=== PATIENT | male | born 1975 | race Caucasian/White ===

== ENCOUNTER 2020-04-18 19:47 | Emergency (ER) | payer OTHER, SELFPAY ==
[2020-04-18 19:48] VITALS: BP 157/105; PULSE 99; RESP 18; TEMP 36.1; O2SAT 99; BMI 65.0
--- NOTE | 2020-04-18 20:44 | ED.VISSUMM ---
- ER Visit Summary Date of Service: 04/18/20 Chief Complaint: Right lower medial rib cage pain posteriorly History of Present Illness: The patient is a 43 M history of diabetes and hypertension. No history of kidney stones. Patient states he has right posterior medial rib pain in the back just lateral to his spine. Says been going on a week. Intermittent. Increased pain today. Denies any dysuria or hematuria. No history of stones. Denies any falls, injury or trauma. No fever, cough or shortness of breath. 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 He is concerned he may have pulled something in his back. Denies any numbness or weakness. No bowel or bladder incontinence. Physical Examination: Middle-aged male vital signs stable afebrile. Does not look septic or toxic. Pulse ox 99% on room air no signs of hypoxia. No distress. HEENT exam unremarkable. Neck nontender no lymphadenopathy. Lungs auscultation bilaterally. Heart regular rhythm no murmur. Abdomen soft nontender normal bowel sounds no peritoneal signs. Morbidly obese. Extremities moves all 4. Neurovascular intact. Calves nontender no edema. Back cervical, thoracic and lumbar spine all nontender. His right posterior lower medial rib cage of the lower ribs are tender to palpation. There is no ecchymosis or bruising. No subcu air crepitance. No signs of trauma. Neurologically is awake alert with no focal motor deficits. Test Results: Chest x-ray AP lateral 2 views read by myself and the radiologist shows no acute abnormality. No obvious rib fractures. Normal cardiac silhouette and lung jimenes and mediastinum. Emergency Department Course and Treatment: Patient with right lower medial back and rib cage pain. Appears to be musculoskeletal etiology. No other symptoms. Worse with movement. X-ray to evaluate for possible rib fracture but feel less likely because he had no trauma. This could be muscle spasm and strain. Repeat exam patient is doing well at 21:24 PM. I do think this is musculoskeletal etiology. Valium for muscle relaxant. Treatment Plan: Valium for muscle relaxant. Hot shower, warm bath and massage. Motrin decrease pain and inflammation. Follow-up if not improving or return if worse. Disposition: discharge Impression: Acute right lower back and rib cage pain secondary to muscle spasm and strain This note was generated with [email or web address]-DO[employer]ORSation software. It may contain incorrect words, spelling, and punctuation that were not noted in review of the chart prior to signing
--- NOTE | 2020-04-18 20:56 | RAD_ITS ---
STUDY: X-RAY CHEST REASON FOR EXAM: Male, 44 years old. Right posteromedial rib pain. Back pain. No trauma. TECHNIQUE: PA and lateral views of the chest. COMPARISON: None. FINDINGS: The lungs are clear and expanded. There is no demonstrated pleural abnormality. Normal size heart. Normal mediastinum and yuan. Normal visualized pulmonary arteries. Normal visualized aortic arch and descending thoracic aorta. There are diffuse degenerative changes of the visualized thoracic spine. There is degenerative osteoarthritis of the bilateral shoulders. There is no demonstrated abnormality of the visualized soft tissue structures of the upper abdomen. RAD/Chest PA and Lateral IMPRESSION: Degenerative changes, as described above. No demonstrated acute cardiopulmonary process. Electronically Signed: Cole Mota DO at 21:08 EST Tel [phone], Service support ,
--- NOTE | 2020-04-18 21:27 | ED.DEP ---
ED Disposition - Plan for ED Patient: Disposition: Home or Assisted Living Instructions: ED Spasm Back No Trauma Prescriptions: Diazepam [Valium] 10 mg PO Q8H PRN PRN 4 Days #10 tab PRN Reason: Muscle Spasm Prescription Printed Referrals: Manuel Gee MD [Primary Care Provider] - 3-5 Days if not improving Additional Instructions: Hot shower, warm compresses and massage to decrease the muscle spasm and back pain. Motrin for pain and inflammation. Valium as needed as a muscle relaxant. Do not drive or use any other pain medications except Motrin or Tylenol when using the Valium. Follow-up with your doctor if not improving return emergency department if feeling worse.
== END 2020-04-18 21:43 | disposition home or self-care (01) ==
PROVIDERS: Emergency Provider Emergency Medicine; PCP Family Medicine
DX: M54.5 Low back pain (principal); R07.81 Pleurodynia; M62.838 Other muscle spasm; T14.8XXA Other injury of unspecified body region, initial encounter; X58.XXXA Exposure to other specified factors, initial encounter; Y93.9 Activity, unspecified; Y92.9 Unspecified place or not applicable; I10 Essential (primary) hypertension; E11.9 Type 2 diabetes mellitus without complications; Z72.0 Tobacco use
CPT/HCPCS: 71046; 99282

== ENCOUNTER 2020-11-08 10:07 | Inpatient (IN) | payer BC, SELFPAY ==
[2020-11-08] VITALS (13 sets, daily range): BP systolic 101–157; BP diastolic 68–89; PULSE 77–113; RESP 17–36; TEMP 36.6–37.6; O2SAT 89–94; BMI 61.0; BMI 60.9
--- NOTE | 2020-11-08 10:22 | RAD_ITS ---
STUDY: X-RAY CHEST REASON FOR EXAM: Male, 45 years old. Cough TECHNIQUE: Single AP portable view of the chest. COMPARISON: Comparison is made with prior study dated 04/18/2020. FINDINGS: Focal patchy infiltrates are seen in both lungs more prominent in the left lung. There is evidence of a 2.1 cm x 2.7 cm nodular density in the lateral aspect of the left mid lung. Follow-up is recommended. There is no demonstrated pleural abnormality. Normal size heart. Normal mediastinum and yuan. Normal visualized pulmonary arteries. Normal visualized aortic arch and descending thoracic aorta. Normal visualized thoracic spine. Normal visualized ribs, clavicles, and shoulders. There is no demonstrated abnormality of the visualized soft tissue structures of the upper abdomen. RAD/Chest 1 View (Portable) IMPRESSION: Patchy bilateral pulmonary infiltrates more prominent on the left side with a 2.7 cm x 2.1 cm nodule in the peripheral lateral aspect of the left lung. Electronically Signed: Gucci Mckeon MD at 11:00 EDT , Service support ,
--- NOTE | 2020-11-08 10:23 | ED.VIS.DYS ---
HPI History of Present Illness Chief Complaint: Shortness of Breath Detail of Chief Complaint: Patient with Covid symptoms x5 days Informant: patient Narrative Narrative: Patient complains of shortness of breath since yesterday. Patient states that his was just discharged from the hospital after being admitted for Covid and his [id number] is currently admitted to our hospital with Covid. Patient has not been tested. Has had symptoms for 5 days. He complains of cough as well as body aches that are now resolved. Patient complains of a headache. Patient has lost sense of taste. When ambulated to the room nursing staff noted that his O2 sat was 86% on room air. Patient is a diabetic. [facility] Medical History (Updated 11/08/20 @ 12:[address] Austin Linares DO) Diabetes Hypertension Home Medications amlodipine 5 mg PO DAILY 11/08/20 [History Last Taken Unknown] metformin 500 mg PO BID 11/08/20 [History Last Taken Unknown] Allergy/AdvReac Type Severity Reaction Status Date / Time No Known Allergies Allergy Verified 11/08/20 10:11 Social History Smoking Status: Never smoker ROS ROS ED Constitutional Constitutional ED: Reports systems reviewed and no addt'l complaints, except as documented; Denies body ache(s), change in weight or chills Eyes Eyes: Denies acute decrease in peripheral vision, change in vision, double vision or loss of vision ENT ENT ED: Reports none; Denies ear pain, lip swelling, loss taste/smell, neck pain, otalgia or sore throat Cardiovascular Cardiovascular: Reports none; Denies abdominal pain, chest pain with activity, leg edema, lightheadedness, palpitations, rapid heart rate or syncope Respiratory/Chest Respiratory/Chest: Reports none, cough and dyspnea; Denies change in mental status, dry cough, hemoptysis, shortness of breath at rest or shortness of breath with exertion Gastrointestinal Gastrointestinal: Reports none; Denies abdominal pain, change in stool character, diarrhea, hematemesis, hematochezia, melena, rectal bleeding or vomiting Genitourinary Genitourinary ED: Reports none; Denies abdominal discomfort, anuria, dysuria, genital pain or polyuria Musculoskeletal Musculoskeletal: Reports none; Denies arthralgias, back pain, difficulty walking, extremity pain, muscle weakness or myalgias Integumentary Reports none; Denies abscess or rash Neurologic Neurologic: Reports none and headache(s); Denies abnormal gait, confusion, focal weakness, frequent falls, loss of vision, numbness, paresthesias, radicular pain, vertigo or weakness Psychiatric Psychiatric: Reports systems reviewed and no addt'l complaints, except as documented and none; Denies behavioral changes, confusion, difficulty concentrating, hallucinations, suicidal ideation, tactile hallucinations or visual hallucinations Endocrine Endocrinology: Denies none, cold intolerance, excessive sweating, fatigue or heat intolerance Hematologic/Lymphatic Hematologic/Lymphatic: Reports none; Denies anemia, easy bleeding or easy bruising Allergic/Immunologic Allergic/Immunologic ED: Denies as per HPI, none, lip swelling, mouth swelling, throat swelling, tongue swelling or hives EXAM Physical Exam Const Vital Signs: 11/08/20 10:08 11/08/20 10:10 11/08/20 11:10 Temperature 99.3 F H 99.3 F H 99.6 F H Temperature Source Temporal Temporal Temporal Pulse Rate 113 H 113 H 98 Respiratory Rate 24 H 24 H 28 H Respiratory Effort Respiratory Depth Respiratory Pattern Blood Pressure 136/86 H 136/86 H 136/86 H Blood Pressure Mean 102 102 102 Pulse Ox 91 91 93 Oxygen Delivery Method Room Air Room Air Nasal Cannula Oxygen Flow Rate (L/min) 2 11/08/20 11:14 Temperature Temperature Source Pulse Rate Respiratory Rate Respiratory Effort Short of Breath Respiratory Depth Shallow Respiratory Pattern Tachypnea Blood Pressure Blood Pressure Mean Pulse Ox Oxygen Delivery Method Nasal Cannula Oxygen Flow Rate (L/min) 2 Positive well nourished and well developed General Appearance ED: well developed and NAD HEENT Reports TM's clear and moist mucous membranes normocephalic and atraumatic; Negative for trauma or tenderness Tympanic Membrane ED: Yes TM's clear Eyes PERRL and EOMs intact bilaterally General Eye ED: Negative for pale conjunctiva or scleral icterus Neck no lymphadenopathy, supple and no JVD General: Negative for tenderness Chest Wall inspection of chest normal and palpation of chest normal Chest: Negative for tenderness Resp normal respiratory effort and clear to auscultation bilaterally Effort and Inspection: Negative for respiratory distress or pain with movement Auscultation: Negative for rhonchi, wheezes or diminished lung sounds Cardio regular rate, regular rhythm, S1 normal heart sound, S2 normal heart sound and no murmurs Peripheral Pulses: pulses 2+ throughout GI normal to inspection, nondistended, normoactive bowel sounds, soft to palpation, non-tender, non-distended and no masses Back/Spine no CVA tenderness and no thoracic nor lumbar tenderness Extremity normal to inspection General Extremety ED: Negative for edema General Extremity: Negative for edema Neuro oriented x3, CN's II-XII intact bilaterally, no sensory deficits noted and gait normal Sensorium / Orientation: awake, alert, oriented to person, oriented to place and oriented to time Motor Exam: strength 5/5 throughout and strength abnormal Psych mental status grossly normal Skin no rashes or lesions noted and no wounds MDM MDM MDM Narrative Medical decision making narrative: Patient with bilateral Covid pneumonia. He was started on Decadron for hypoxemia. He will be admitted to hospitalist service. CTA of the chest was obtained to rule out PE and the results are currently pending however on my interpretation I do not appreciate any large central PEs. Lab Data Attestation: I reviewed the patient's lab results. Labs: Laboratory Results - last 24 hr 11/08/20 11/08/20 11/08/20 11:05 11:05 11:05 WBC 6.8 RBC 5.22 Hgb 17.2 H Hct 49.3 MCV 94.4 H MCH 33.0 H MCHC 34.9 RDW Std Deviation 43.1 RDW Coeff of Ren 12.4 Plt Count 196 MPV 10.2 Immature Gran % (Auto) 0.400 Neut % (Auto) 76.1 H Lymph % (Auto) 16.1 L [place] % (Auto) 7.3 Eos % (Auto) 0.0 Baso % (Auto) 0.1 Absolute Neuts (auto) 5.2 Absolute Lymphs (auto) 1.10 Nucleated RBC % 0 D-Dimer Quant (PE/DVT) 0.58 H* Sodium 137 Potassium 3.7 Chloride 103 Carbon Dioxide 29.0 Anion Gap 5 BUN 11 Creatinine 1.06 Estim Creat Clear Calc 82.28 Est GFR (MDRD) Af Amer 97 Est GFR (MDRD) Non-Af 80 BUN/Creatinine Ratio 10.4 Glucose 150 H Lactic Acid Calcium 8.5 Total Bilirubin 0.60 AST 58 H ALT 51 Alkaline Phosphatase 53 Total Protein 7.6 Albumin 3.3 Globulin 4.3 H Albumin/Globulin Ratio 0.8 L 11/08/20 11:05 WBC RBC Hgb Hct MCV MCH MCHC RDW Std Deviation RDW Coeff of Ren Plt Count MPV Immature Gran % (Auto) Neut % (Auto) Lymph % (Auto) [place] % (Auto) Eos % (Auto) Baso % (Auto) Absolute Neuts (auto) Absolute Lymphs (auto) Nucleated RBC % D-Dimer Quant (PE/DVT) Sodium Potassium Chloride Carbon Dioxide Anion Gap BUN Creatinine Estim Creat Clear Calc Est GFR (MDRD) Af Amer Est GFR (MDRD) Non-Af BUN/Creatinine Ratio Glucose Lactic Acid 1.5 Calcium Total Bilirubin AST ALT Alkaline Phosphatase Total Protein Albumin Globulin Albumin/Globulin Ratio Radiography Chest X-Ray - ED: 1 View Diagnostic Testing: Radiology Impression Chest X-Ray 11/08/20 10:22 IMPRESSION: Patchy bilateral pulmonary infiltrates more prominent on the left side with a 2.7 cm x 2.1 cm nodule in the peripheral lateral aspect of the left lung. Electronically Signed: Gucci Mckeon MD at 11:00 EDT , Service support , 1 view chest x-ray obtained interpreted by myself as bilateral patchy infiltrates. Radiology in agreement. Discharge Plan Triage Chief Complaint: Shortness of Breath ED Provider: Austin Linares Dx/Rx/DC Orders Clinical Impression: Pneumonia due to 2019 novel coronavirus, Hypoxemia Prescriptions: No Action metformin 500 mg tablet 500 mg PO BID RF: 0 amlodipine 5 mg tablet 5 mg PO DAILY RF: 0 Primary Care Provider: Manuel Gee Referrals: Manuel Gee MD [Primary Care Provider] - Disposition Disposition: Acute Care Hospital [facility]
[2020-11-08] MEDS: dexAMETHasone 10 MG/ML Vial 6 MG IV (11:01)
[2020-11-08 11:18] LABS: Absolute Neutrophil Count 5.2 X10^3/uL (2.0-7.7); Basophil# 0.01 X10^3/uL; Basophil% 0.1 % (0-1); Hematocrit 49.3 % (40-54); Hemoglobin 17.2 g/dL (13.0-16.5); Lymphocyte % 16.1 % (19-41); Mean Corp Hgb Conc 34.9 g/dL (32-36); Mean Corpuscular Volume 94.4 fL (80-94); Mean Platelet Vol. 10.2 fl (6.2-12.0); Monocyte% 7.3 % (0-10); NRBC Flagged by Analyzer 0 % (0-5); Neutrophil # 5.18 X10^3/uL (2.7-7.7); Neutrophil % 76.1 % (47-70); Platelet Count 196 K/mm3 (150-450); RBC Distribution Width CV 12.4 % (11.6-14.6); RBC Distribution Width SD 43.1 fl (35.1-43.9); Red Blood Count 5.22 M/mm3 (4.6-6.2); White Blood Count 6.8 K/mm3 (4.4-11.0)
[2020-11-08 11:31] LABS: D-Dimer Quantitative (DVT/PE) 0.58 FEU/ug/m (0.27-0.49)
[2020-11-08 11:34] LABS: ALB/GLOB Ratio 0.8 RATIO (0.9-2.4); AST(SGOT) 58 U/L (15-37); Alanine Aminotransfer ALT/SGPT 51 U/L (16-61); Albumin, Serum 3.3 g/dL (3.2-5.0); Alkaline Phosphatase 53 U/L (45-117); Anion Gap 5 (5-15); BUN 11 mg/dL (7-18); BUN/Creat Ratio 10.4 RATIO (10-20); Calcium,Total 8.5 mg/dL (8.5-10.1); Chloride 103 mmol/L (98-107); Creatinine, Serum 1.06 mg/dL (0.70-1.30); EST Glomerular Filtration Rate 80 mL/min (>60); Est Glom Filt Rate - Afr Amer 97 mL/min (>60); Estimated Creatinine Clearance 82.28 ml/min; Globulin 4.3 g/dL (2.2-4.2); Glucose 150 mg/dL (74-106); Potassium 3.7 mmol/L (3.5-5.1); Protein, Total 7.6 g/dL (6.4-8.2); Sodium Level 137 mmol/L (136-145)
--- NOTE | 2020-11-08 11:37 | CT_ITS ---
STUDY: CTA CHEST REASON FOR EXAM: Male, 45 years old. Elevated d-dimer. Abnormal chest radiograph done earlier today. RADIATION DOSAGE (If Supplied By Facility): CTDIvol = ( 24.81 ) mGy, DLP = ( 817.00 ) mGycm TECHNIQUE: The examination was performed with the intravenous administration of IV 100mL Isovue-370. Post-processing of the angiographic images was performed, with multiplanar reformation and 3D reconstruction. Individualized dose optimization techniques were used for this CT. COMPARISON: Comparison is made with prior chest radiograph done earlier today. FINDINGS: Normal enhancement of the main pulmonary artery and right and left pulmonary arteries. Normal enhancement of the bilateral peripheral pulmonary arteries. There is no demonstrated pulmonary embolism. Normal thoracic aorta and visualized great vessels. There is no demonstrated aortic dissection. Normal heart and pericardium. There are visualized mediastinal lymph nodes, which are within normal size limits, and with normal morphology. Normal hilar regions. Normal visualized trachea and bronchi. The lungs are well expanded. Multiple areas of patchy airspace disease/groundglass appearance in both lungs worse in the lingular segment of the left upper lobe as well as in the left lower lobe. Normal pleura. Normal chest wall structures. There are degenerative changes of thoracic spine. Normal visualized upper abdomen. CT/CTA Chest W/WO Contrast IMPRESSION: No evidence of pulmonary embolism. Multiple areas of air space disease as well as groundglass appearance in both lungs worse in the lingular segment of the left upper lobe and the left lower lobe. Electronically Signed: Gucci Mckeon MD at 12:47 EDT , Service support ,
[2020-11-08 11:48] LABS: Lactic Acid 1.5 mmol/L (0.4-1.9)
--- NOTE | 2020-11-08 12:36 | EKG12_ITS ---
Test Reason : SOB Blood Pressure : / mmHG Vent. Rate : 095 BPM Atrial Rate : 095 BPM P-R Int : 150 ms QRS Dur : 098 ms QT Int : 348 ms P-R-T Axes : 019 -03 039 degrees QTc Int : 437 ms Poor data quality, interpretation may be adversely affected Normal sinus rhythm Normal ECG Confirmed by SALLY BELTRAN, VIKA ([id number]), art editor ANTHONY MORGAN ([id number]) on 11/09/2020 12:50:43 PM Referred By: AURELIO Confirmed By:SUSIE ZAVALA MD
--- NOTE | 2020-11-08 13:59 | HP.PCM.HOS_ITS ---
HPI - General General Date of Admission: 11/08/20 Date of Service: 11/08/20 Chief Complaint: Cough and shortness of breath for past 2 days HPI Narrative HALLIE MUHAMMAD, is a 45 M who presents to ER with COVID-19 symptoms. Patient leg symptoms body aches, generalized weakness started on Friday about 5 days ago and then having cough, mild shortness of breath for last 3 days. Patient has all family members infected with COVID-19 started with with his daughter. His was just discharged from the hospital and is [id number] is also admitted. Patient does not have taste and smell sensation. Patient pulse ox is 86% on room air. Patient denies any chronic lung disease. Used to have chewed tobacco and quit 20-25 years ago. Denies any smoking cigarettes. Occasional alcohol. Denies chronic heart disease or CA. [facility] Medical History Diabetes Hypertension Home Medications amlodipine 5 mg PO DAILY 11/08/20 [History Last Taken Unknown] metformin 500 mg PO BID 11/08/20 [History Last Taken Unknown] Allergy/AdvReac Type Severity Reaction Status Date / Time No Known Allergies Allergy Verified 11/08/20 10:11 Family History (Updated 11/08/20 @ 14:[address] Tristan Bowen MD) Father CAD (coronary artery disease) Social History Smoking Status: Never smoker ROS ROS Narrative Constitutional: Reports fatigue and weakness. Denies fever or chills. Morbid obesity HEENT: Reports systems reviewed and no addt'l complaints, except as documented Respiratory/Chest: Cough, mild shortness of breath on exertion. No chest pain Gastrointestinal: denies coffee ground emesis, hematemesis or vomiting. Loose bowel movement. Anorexia. No abdominal pain Genitourinary: Denies burning urination/new urinary tract symptoms Musculoskeletal: Reports joint pain and limited range of motion Neurologic: Denies seizure-like activity skin: No ulcer. No rash Endocrinology: Diabetes mellitus type 2 reports systems reviewed and no addt'l complaints, except as documented Hematologic/Lymphatic: Reports systems reviewed and no addt'l complaints, except as documented Rest 12 ROS are negative except as mentioned in HPI Vital Signs Vital Signs Vital Signs: 11/08/20 10:08 11/08/20 10:10 11/08/20 11:10 Temperature 99.3 F H 99.3 F H 99.6 F H Temperature Source Temporal Temporal Temporal Pulse Rate 113 H 113 H 98 Respiratory Rate 24 H 24 H 28 H Respiratory Effort Respiratory Depth Respiratory Pattern Blood Pressure 136/86 H 136/86 H 136/86 H Blood Pressure Mean 102 102 102 Pulse Ox 91 91 93 Oxygen Delivery Method Room Air Room Air Nasal Cannula Oxygen Flow Rate (L/min) 2 11/08/20 11:14 11/08/20 12:16 Temperature Temperature Source Pulse Rate 101 H Respiratory Rate 23 H Respiratory Effort Short of Breath Respiratory Depth Shallow Respiratory Pattern Tachypnea Blood Pressure 128/71 H Blood Pressure Mean 90 Pulse Ox 90 Oxygen Delivery Method Nasal Cannula Nasal Cannula Oxygen Flow Rate (L/min) 2 2 Weight Weight: 390 lb Body Mass Index (BMI) 61.0 Physical Exam Narrative General: Alert, Oriented x3, Cooperative, morbid obesity BMI 61.1 kg/m? HEENT: Atraumatic, PERRLA, EOMI, Normocephalic Oral: No Gingival or Mucosal Lesions/ Ulcerations Neck: Supple, No JVD, Negative Carotid Bruits Lungs: Air entry diminished in bilateral lung bases. Mild bilateral coarse wheezing. Cardiovascular: Regular rate, Regular Rhythm, Normal S1, Normal S2, No murmurs Abdomen: Bowel Sounds Present, Soft, Non Tender, Non-Distended : No renal angle tenderness. No suprapubic tenderness. Extremities: No edema, Capillary Refill Less than 3 Seconds Skin: No rashes, No breakdown Musculoskeletal: No Tenderness to Palpation of Joints or Extremities Neurological: Cranial nerves II-XII grossly intact, Deep Tendon Reflexes 2+/4 and Symmetrical, Neuro grossly intact Psych/Mental Status: Normal Affect, Appropriate. Lab / Micro Data Result Diagrams: 11/08/20 11:05 11/08/20 11:05 Labs: Laboratory Results - last 24 hr 11/08/20 11/08/20 11/08/20 11:05 11:05 11:05 WBC 6.8 RBC 5.22 Hgb 17.2 H Hct 49.3 MCV 94.4 H MCH 33.0 H MCHC 34.9 RDW Std Deviation 43.1 RDW Coeff of Ren 12.4 Plt Count 196 MPV 10.2 Immature Gran % (Auto) 0.400 Neut % (Auto) 76.1 H Lymph % (Auto) 16.1 L [place] % (Auto) 7.3 Eos % (Auto) 0.0 Baso % (Auto) 0.1 Absolute Neuts (auto) 5.2 Absolute Lymphs (auto) 1.10 Nucleated RBC % 0 D-Dimer Quant (PE/DVT) 0.58 H* Sodium 137 Potassium 3.7 Chloride 103 Carbon Dioxide 29.0 Anion Gap 5 BUN 11 Creatinine 1.06 Estim Creat Clear Calc 82.28 Est GFR (MDRD) Af Amer 97 Est GFR (MDRD) Non-Af 80 BUN/Creatinine Ratio 10.4 Glucose 150 H Lactic Acid Calcium 8.5 Total Bilirubin 0.60 AST 58 H ALT 51 Alkaline Phosphatase 53 Total Protein 7.6 Albumin 3.3 Globulin 4.3 H Albumin/Globulin Ratio 0.8 L 11/08/20 11:05 WBC RBC Hgb Hct MCV MCH MCHC RDW Std Deviation RDW Coeff of Ren Plt Count MPV Immature Gran % (Auto) Neut % (Auto) Lymph % (Auto) [place] % (Auto) Eos % (Auto) Baso % (Auto) Absolute Neuts (auto) Absolute Lymphs (auto) Nucleated RBC % D-Dimer Quant (PE/DVT) Sodium Potassium Chloride Carbon Dioxide Anion Gap BUN Creatinine Estim Creat Clear Calc Est GFR (MDRD) Af Amer Est GFR (MDRD) Non-Af BUN/Creatinine Ratio Glucose Lactic Acid 1.5 Calcium Total Bilirubin AST ALT Alkaline Phosphatase Total Protein Albumin Globulin Albumin/Globulin Ratio Micro: Microbiology 11/08/20 10:55 SARS-CoV-2 Antigen (Rapid) - Final Interface Orders SARS-CoV-2 (COVID 19) Radiology Impression Chest X-Ray 11/08/20 10:22 IMPRESSION: Patchy bilateral pulmonary infiltrates more prominent on the left side with a 2.7 cm x 2.1 cm nodule in the peripheral lateral aspect of the left lung. Electronically Signed: Gucci Mckeon MD at 11:00 EDT , Service support , Chest CTA 11/08/20 11:37 IMPRESSION: No evidence of pulmonary embolism. Multiple areas of air space disease as well as groundglass appearance in both lungs worse in the lingular segment of the left upper lobe and the left lower lobe. Electronically Signed: Gucci Mckeon MD at 12:47 EDT , Service support , Assessment & Plan Assessment/Plan (1) Pneumonia due to 2019 novel coronavirus: (2) Hypoxemia: PLAN: 1. Acute hypoxic respiratory insufficiency due to bilateral COVID- 19 pneumonia: Chest x-ray and CTA reviewed. No PE. Multiple areas of patchy airspace groundglass opacities worse in lingular segment and left lower lobe. D-dimer is elevated. AST 58. Started on IV remdesivir and dexamethasone. ID consult. Inflammatory markers including procalcitonin ordered. Lactic acid normal 2. Morbid obesity, BMI 61.1 Kd per meter square: CPAP as needed ordered. Patient denies history of obstructive sleep apnea: No formal evaluation. 3. Diabetes mellitus type 2: Accu-Cheks before meals and at bedtime en couragement of sliding scale. Glucose 150. A1c tomorrow a.m. 4. Hypertension: Blood pressure is controlled. Home medications reviewed. VTE prophylaxis: Moderate to high risk: Lovenox 40 mg subcu twice daily. Full code. Visit Charges Inpatient E&M: 49559 Init Hosp L3
--- NOTE | 2020-11-08 13:59 | NURSING ---
ICU 2
[2020-11-08 15:29] LABS: Absolute Lymphocyte Count 0.74 X10^3/uL (0.83-4.51); Absolute Neutrophil Count 5.6 X10^3/uL (2.0-7.7); Basophil# 0.01 X10^3/uL; Basophil% 0.2 % (0-1); Hematocrit 46.3 % (40-54); Hemoglobin 16.3 g/dL (13.0-16.5); Lymphocyte # 0.74 X10^3/ul (0.83-4.51); Lymphocyte % 11.3 % (19-41); Mean Corp Hgb Conc 35.2 g/dL (32-36); Mean Corpuscular Hgb 33.2 pg (27.0-32.0); Mean Corpuscular Volume 94.3 fL (80-94); Mean Platelet Vol. 10.5 fl (6.2-12.0); Monocyte# 0.21 X10^3/uL; Monocyte% 3.2 % (0-10); NRBC Flagged by Analyzer 0 % (0-5); Neutrophil # 5.57 X10^3/uL (2.7-7.7); Neutrophil % 84.8 % (47-70); Platelet Count 203 K/mm3 (150-450); RBC Distribution Width CV 12.1 % (11.6-14.6); RBC Distribution Width SD 42.6 fl (35.1-43.9); Red Blood Count 4.91 M/mm3 (4.6-6.2); White Blood Count 6.6 K/mm3 (4.4-11.0)
[2020-11-08 15:55] LABS: BNP,B-Type NATRIURETIC PEPTIDE 6.2 pg/mL (0-100)
[2020-11-08] MEDS: 0.9% Normal Saline 1,000 ML 75 ML IV (16:07)
[2020-11-08 16:19] LABS: Fibrinogen 616 mg/dl (203-444)
[2020-11-08 16:36] LABS: Procalcitonin 0.12 ng/mL (0.00-0.09)
[2020-11-08 16:38] LABS: ALB/GLOB Ratio 0.7 RATIO (0.9-2.4); AST(SGOT) 53 U/L (15-37); Alanine Aminotransfer ALT/SGPT 48 U/L (16-61); Albumin, Serum 3.1 g/dL (3.2-5.0); Alkaline Phosphatase 52 U/L (45-117); Anion Gap 10 (5-15); BUN 11 mg/dL (7-18); BUN/Creat Ratio 11.9 RATIO (10-20); Chloride 103 mmol/L (98-107); Creatinine, Serum 0.93 mg/dL (0.70-1.30); EST Glomerular Filtration Rate 94 mL/min (>60); Est Glom Filt Rate - Afr Amer 113 mL/min (>60); Estimated Creatinine Clearance 90.52 ml/min; Globulin 4.2 g/dL (2.2-4.2); Glucose 167 mg/dL (74-106); LDH 379 U/L (87-241); Magnesium 2.2 mg/dL (1.6-2.6); Potassium 3.8 mmol/L (3.5-5.1); Protein, Total 7.3 g/dL (6.4-8.2); Sodium Level 137 mmol/L (136-145)
[2020-11-08 17:24] LABS: International Normalized Ratio 1.1; Prothrombin Time (Protime)PT. 13.6 SECONDS (11.7-14.9)
[2020-11-08] MEDS: Enoxaparin 40 MG/0.4 ML Syringe SC (20:07)
[2020-11-08 20:45] LABS: CPK Total, Creatine Kinase 182 U/L (39-308)
--- NOTE | 2020-11-08 21:35 | NURSING ---
O2 at 5lnc po 94%
[2020-11-09] VITALS (13 sets, daily range): BP systolic 138–153; BP diastolic 82–94; PULSE 49–93; RESP 18–23; TEMP 36.6–36.7; O2SAT 90–94
--- NOTE | 2020-11-09 00:36 | NURSING ---
Pt while sleeping po drop to 88 on 5l. )2 increased to 6l while he is sleeping. Pt said he has been told to get a sleep study.
--- NOTE | 2020-11-09 01:53 | NURSING ---
Pt walked to bathroom. Pt had a bm. PT returned from bathroom po drop 86% with activity. Pt had 02 on the whole time. Pt given the is and did come up to 93%- 92%
[2020-11-09] MEDS: 0.9% Saline Lock 10 ML Syringe IV (04:42)
[2020-11-09 05:00] LABS: Absolute Lymphocyte Count 1.76 X10^3/uL (0.83-4.51); Absolute Neutrophil Count 7.2 X10^3/uL (2.0-7.7); Basophil# 0.01 X10^3/uL; Basophil% 0.1 % (0-1); Hematocrit 49.2 % (40-54); Lymphocyte # 1.76 X10^3/ul (0.83-4.51); Lymphocyte % 18.1 % (19-41); Mean Corp Hgb Conc 34.6 g/dL (32-36); Mean Corpuscular Hgb 32.9 pg (27.0-32.0); Mean Corpuscular Volume 95.3 fL (80-94); Mean Platelet Vol. 10.1 fl (6.2-12.0); Monocyte# 0.77 X10^3/uL; Monocyte% 7.9 % (0-10); NRBC Flagged by Analyzer 0 % (0-5); Neutrophil # 7.16 X10^3/uL (2.7-7.7); Neutrophil % 73.4 % (47-70); Platelet Count 241 K/mm3 (150-450); RBC Distribution Width CV 12.1 % (11.6-14.6); RBC Distribution Width SD 42.7 fl (35.1-43.9); Red Blood Count 5.16 M/mm3 (4.6-6.2); White Blood Count 9.8 K/mm3 (4.4-11.0)
[2020-11-09 05:21] LABS: ALB/GLOB Ratio 0.7 RATIO (0.9-2.4); AST(SGOT) 39 U/L (15-37); Alanine Aminotransfer ALT/SGPT 46 U/L (16-61); Albumin, Serum 3.2 g/dL (3.2-5.0); Alkaline Phosphatase 55 U/L (45-117); Anion Gap 8 (5-15); BUN 13 mg/dL (7-18); BUN/Creat Ratio 11.4 RATIO (10-20); Calcium,Total 8.4 mg/dL (8.5-10.1); Chloride 102 mmol/L (98-107); Creatinine, Serum 1.14 mg/dL (0.70-1.30); EST Glomerular Filtration Rate 74 mL/min (>60); Est Glom Filt Rate - Afr Amer 89 mL/min (>60); Estimated Creatinine Clearance 73.84 ml/min; Globulin 4.4 g/dL (2.2-4.2); Glucose 187 mg/dL (74-106); Phosphorus 2.9 mg/dL (2.5-4.9); Potassium 3.6 mmol/L (3.5-5.1); Protein, Total 7.6 g/dL (6.4-8.2); Sodium Level 138 mmol/L (136-145)
[2020-11-09] MEDS: Enoxaparin 40 MG/0.4 ML Syringe SC ×2 (08:11→22:26)
[2020-11-09] MEDS: dexAMETHasone 10 MG/ML Vial 6 MG IV (08:12)
[2020-11-09] MEDS: guaiFENesin/D-Methorphan TAB.SR.12H 1 TABLET PO ×2 (08:24→22:27)
--- NOTE | 2020-11-09 10:54 | CASEMGMT ---
SHORTY COWAN Assessment: Face to Face with pt for initial transition planning/care coordination assessment. RN CAMRYN introduced self and role at [facility], pt voices understanding and consents to assessment. Pt is A/O x4 and answers all questions appropriately at this time. Care providers, pharmacy, and demographics verified/updated. Admitting Dx: Umesh manciniid 19 pna PCP: Marlen Specialists: Pt denies having any specialists. Preferred Pharmacy: [facility] Insurance: [place] Prescription Benefit: yes LW/HPOA: Pt denies having a LW/DPOA LNOK: Rani Landis, Living Arrangements: Pt lives with in a two story home with 3 steps to enter with a rail. Pt is I in ADL's and denies concerns at home. Transportation: Pt drives self and denies concerns with transportation. DME/HHC/SNF: Pt denies any DME in the home, denies previous HHC or SNF stays. Discussed with the patient the possibility of needing home O2 at dc. Provided pt with a list of local in network DME companies. Pt states he would like to chose [employer] as that is what his chose when she was in recently. Pt states he is able to quarantine and has someone who can assist with groceries/supplies. Pt states no concerns with going home at time of dc. Pt states no further concerns/needs. CM to follow. Advised pt to ask CM if any further question/concerns/needs arise, voices understanding. Pt Goal: Home Plan: Home
--- NOTE | 2020-11-09 12:23 | PCM.PN.HOSP ---
Subjective Subjective Patient is still on 6 L of oxygen. Most probably he has undiagnosed sleep apnea with morbid obesity. Overall shortness of breath is better. Objective Data Objective Data Vital Signs: Vital Signs Temp Pulse Resp BP Pulse Ox 98.1 F 89 20 H 153/83 H 94 11/09/20 07:51 11/09/20 07:51 11/09/20 07:51 11/09/20 07:51 11/09/20 07:51 Oxygen Flow Rate (L/min) 6 Oxygen Delivery Method Nasal Cannula Weight: 388 lb 0.217 oz Body Mass Index (BMI) 60.9 Intake & Output: Intake and Output for Last 24 Hours 11/07/20 11/08/20 11/09/20 23:59 23:59 23:59 Intake Total 690 / 690 1120 / 1120 Output Total 375 / 375 Balance 315 / 315 1120 / 1120 Lab / Micro Data Result Diagrams: 11/09/20 04:45 11/09/20 04:45 Labs: Laboratory Results - last 24 hr 11/08/20 11/08/20 11/08/20 15:00 15:00 15:00 WBC 6.6 RBC 4.91 Hgb 16.3 Hct 46.3 MCV 94.3 H MCH 33.2 H MCHC 35.2 RDW Std Deviation 42.6 RDW Coeff of Ren 12.1 Plt Count 203 MPV 10.5 Immature Gran % (Auto) 0.500 Neut % (Auto) 84.8 H Lymph % (Auto) 11.3 L [place] % (Auto) 3.2 Eos % (Auto) 0.0 Baso % (Auto) 0.2 Absolute Neuts (auto) 5.6 Absolute Lymphs (auto) 0.74 L Nucleated RBC % 0 PT INR Fibrinogen Sodium 137 Potassium 3.8 Chloride 103 Carbon Dioxide 24.0 Anion Gap 10 BUN 11 Creatinine 0.93 Estim Creat Clear Calc 90.52 Est GFR (MDRD) Af Amer 113 Est GFR (MDRD) Non-Af 94 BUN/Creatinine Ratio 11.9 Glucose 167 H Lactic Acid 1.0 Calcium 8.0 L Phosphorus Magnesium 2.2 Total Bilirubin 0.50 AST 53 H ALT 48 Alkaline Phosphatase 52 Lactate Dehydrogenase 379 H Total Creatine Kinase C-React Prot Ext Range 53.10 H B-Natriuretic Peptide Total Protein 7.3 Albumin 3.1 L Globulin 4.2 Albumin/Globulin Ratio 0.7 L Procalcitonin 11/08/20 11/08/20 11/08/20 15:00 15:00 15:00 WBC RBC Hgb Hct MCV MCH MCHC RDW Std Deviation RDW Coeff of Ren Plt Count MPV Immature Gran % (Auto) Neut % (Auto) Lymph % (Auto) [place] % (Auto) Eos % (Auto) Baso % (Auto) Absolute Neuts (auto) Absolute Lymphs (auto) Nucleated RBC % PT 13.6 INR 1.1 Fibrinogen 616 H Sodium Potassium Chloride Carbon Dioxide Anion Gap BUN Creatinine Estim Creat Clear Calc Est GFR (MDRD) Af Amer Est GFR (MDRD) Non-Af BUN/Creatinine Ratio Glucose Lactic Acid Calcium Phosphorus Magnesium Total Bilirubin AST ALT Alkaline Phosphatase Lactate Dehydrogenase Total Creatine Kinase 182 C-React Prot Ext Range B-Natriuretic Peptide 6.2 Total Protein Albumin Globulin Albumin/Globulin Ratio Procalcitonin 11/08/20 11/09/20 11/09/20 15:00 04:45 04:45 WBC 9.8 RBC 5.16 Hgb 17.0 H Hct 49.2 MCV 95.3 H MCH 32.9 H MCHC 34.6 RDW Std Deviation 42.7 RDW Coeff of Ren 12.1 Plt Count 241 MPV 10.1 Immature Gran % (Auto) 0.500 Neut % (Auto) 73.4 H Lymph % (Auto) 18.1 L [place] % (Auto) 7.9 Eos % (Auto) 0.0 Baso % (Auto) 0.1 Absolute Neuts (auto) 7.2 Absolute Lymphs (auto) 1.76 Nucleated RBC % 0 PT INR Fibrinogen Sodium 138 Potassium 3.6 Chloride 102 Carbon Dioxide 28.0 Anion Gap 8 BUN 13 Creatinine 1.14 Estim Creat Clear Calc 73.84 Est GFR (MDRD) Af Amer 89 Est GFR (MDRD) Non-Af 74 BUN/Creatinine Ratio 11.4 Glucose 187 H Lactic Acid Calcium 8.4 L Phosphorus 2.9 Magnesium Total Bilirubin 0.50 AST 39 H ALT 46 Alkaline Phosphatase 55 Lactate Dehydrogenase Total Creatine Kinase C-React Prot Ext Range B-Natriuretic Peptide Total Protein 7.6 Albumin 3.2 Globulin 4.4 H Albumin/Globulin Ratio 0.7 L Procalcitonin 0.12 H Micro: Microbiology 11/08/20 Unknown Mucosa - Nasopharyngeal Respiratory Panel (PCR) - Final 11/08/20 15:20 Urine, Clean Catch Legionella Antigen - Final 11/08/20 15:20 Urine, Clean Catch Streptococcus pneumoniae Antigen (M - Final 11/08/20 10:55 Interface Orders SARS-CoV-2 Antigen (Rapid) - Final SARS-CoV-2 (COVID 19) Radiography Diagnostic Testing: Radiology Impression Chest CTA 11/08/20 11:37 IMPRESSION: No evidence of pulmonary embolism. Multiple areas of air space disease as well as groundglass appearance in both lungs worse in the lingular segment of the left upper lobe and the left lower lobe. Electronically Signed: Gucci Mckeon MD at 12:47 EDT , Service support , Physical Exam Narrative Physical exam General: Alert, Oriented x3, Cooperative, morbid obesity BMI 61.1 kg/m? HEENT: Atraumatic, PERRLA, EOMI, Normocephalic Oral: No Gingival or Mucosal Lesions/ Ulcerations Neck: Supple, No JVD, Negative Carotid Bruits Lungs: Air entry diminished in bilateral lung bases. Hypoxic. Rhonchi and crepitations has resolved. Cardiovascular: Regular rate, Regular Rhythm, Normal S1, Normal S2, No murmurs Abdomen: Bowel Sounds Present, Soft, Non Tender, Non-Distended : No renal angle tenderness. No suprapubic tenderness. Extremities: Mild bilateral nonpitting, lymphatic edema, Capillary Refill Less than 3 Seconds Skin: No rashes, No breakdown Musculoskeletal: No Tenderness to Palpation of Joints or Extremities Neurological: Cranial nerves II-XII grossly intact, Deep Tendon Reflexes 2+/4 and Symmetrical, Neuro grossly intact Psych/Mental Status: Normal Affect, Appropriate. Assessment & Plan Assessment/Plan (1) Pneumonia due to 2019 novel coronavirus: (2) Hypoxemia: PLAN: 1. Acute hypoxic respiratory failure due to bilateral COVID-19 pneumonia: Chest x-ray and CTA reviewed. No PE. Multiple areas of patchy airspace groundglass opacities worse in lingular segment and left lower lobe. D-dimer is elevated. AST 58. Started on IV remdesivir and dexamethasone. ID consult requested. Lactic acid normal 6/3: Laboratory markers CRP, LDH are elevated. BNP normal. Procalcitonin elevated at 0.12. Continue oxygen support. BiPAP at night. Respiratory panel is negative. Urinary antigens are negative. 2. Morbid obesity, BMI 61.1 Kd per meter square: Patient denies history of obstructive sleep apnea: No formal evaluation. Patient hematocrit is elevated probably due to undiagnosed sleep apnea 3. Diabetes mellitus type 2: Accu-Cheks before meals and at bedtime encouragement of sliding scale. Glucose 150. 6/3: Hyperglycemia probably secondary to steroid and diabetes: Insulin dose uptitrated. 4. Hypertension: Blood pressure is controlled. Home medications reviewed. VTE prophylaxis: Moderate to high risk: Lovenox 40 mg subcu twice daily. Full code. Charges/Coding Visit Charges Inpatient E&M: 17999 Subs Hosp L2
--- NOTE | 2020-11-09 14:23 | CON.PCM.ID_ITS ---
Assessment & Plan Assessment/Plan (1) Pneumonia due to 2019 novel coronavirus: PLAN: Sx started 11/03/20. Quarantine for 20 days from start of symptoms. Dex for 10 days. On remdesivir, monitoring labs ordered. CT showed no PE. Recommend vaccine once he is out of quarantine. Will follow, thank you (2) Hypoxemia: HPI Consult Data Date of Consult: 11/09/20 HPI Narrative HPI Narrative: HALLIE MUHAMMAD, is a 45 M who presented yesterday with sx starting 11/03 with diffuse aches, headache, fever, cough, diarrhea, loss of taste. Had progressive dyspnea. Unvaccinated. Multiple family members with covid. Feeling a little better today. Full ROS performed and neg except as noted above. FORMERLY [facility], [facility] Medical History Diabetes Hypertension Home Medications amlodipine 5 mg PO DAILY 11/08/20 [History Last Taken Unknown] metformin 500 mg PO BID 11/08/20 [History Last Taken Unknown] Allergy/AdvReac Type Severity Reaction Status Date / Time No Known Allergies Allergy Verified 11/08/20 10:11 Family History Father CAD (coronary artery disease) Social History Smoking Status: Never smoker Physical Exam Const alert and oriented x3 General Appearance: cooperative HEENT normocephalic and head/scalp atraumatic Eyes PERRL and EOMs intact bilaterally Neck supple and No nodes Resp Auscultation: diminished lung sounds Cardio regular rate and regular rhythm GI normal to inspection, nondistended, normoactive bowel sounds Extremity no clubbing, cyanosis or edema Skin no rashes or lesions noted Neuro CN's II-XII intact bilaterally Lab / Micro Data Result Diagrams: 11/09/20 04:45 11/09/20 04:45 Labs: Laboratory Results - last 24 hr 11/08/20 11/08/20 11/08/20 15:00 15:00 15:00 WBC 6.6 RBC 4.91 Hgb 16.3 Hct 46.3 MCV 94.3 H MCH 33.2 H MCHC 35.2 RDW Std Deviation 42.6 RDW Coeff of Ren 12.1 Plt Count 203 MPV 10.5 Immature Gran % (Auto) 0.500 Neut % (Auto) 84.8 H Lymph % (Auto) 11.3 L [place] % (Auto) 3.2 Eos % (Auto) 0.0 Baso % (Auto) 0.2 Absolute Neuts (auto) 5.6 Absolute Lymphs (auto) 0.74 L Nucleated RBC % 0 PT INR Fibrinogen Sodium 137 Potassium 3.8 Chloride 103 Carbon Dioxide 24.0 Anion Gap 10 BUN 11 Creatinine 0.93 Estim Creat Clear Calc 90.52 Est GFR (MDRD) Af Amer 113 Est GFR (MDRD) Non-Af 94 BUN/Creatinine Ratio 11.9 Glucose 167 H Lactic Acid 1.0 Calcium 8.0 L Phosphorus Magnesium 2.2 Total Bilirubin 0.50 AST 53 H ALT 48 Alkaline Phosphatase 52 Lactate Dehydrogenase 379 H Total Creatine Kinase C-React Prot Ext Range 53.10 H B-Natriuretic Peptide Total Protein 7.3 Albumin 3.1 L Globulin 4.2 Albumin/Globulin Ratio 0.7 L Procalcitonin 11/08/20 11/08/20 11/08/20 15:00 15:00 15:00 WBC RBC Hgb Hct MCV MCH MCHC RDW Std Deviation RDW Coeff of Ren Plt Count MPV Immature Gran % (Auto) Neut % (Auto) Lymph % (Auto) [place] % (Auto) Eos % (Auto) Baso % (Auto) Absolute Neuts (auto) Absolute Lymphs (auto) Nucleated RBC % PT 13.6 INR 1.1 Fibrinogen 616 H Sodium Potassium Chloride Carbon Dioxide Anion Gap BUN Creatinine Estim Creat Clear Calc Est GFR (MDRD) Af Amer Est GFR (MDRD) Non-Af BUN/Creatinine Ratio Glucose Lactic Acid Calcium Phosphorus Magnesium Total Bilirubin AST ALT Alkaline Phosphatase Lactate Dehydrogenase Total Creatine Kinase 182 C-React Prot Ext Range B-Natriuretic Peptide 6.2 Total Protein Albumin Globulin Albumin/Globulin Ratio Procalcitonin 11/08/20 11/09/20 11/09/20 15:00 04:45 04:45 WBC 9.8 RBC 5.16 Hgb 17.0 H Hct 49.2 MCV 95.3 H MCH 32.9 H MCHC 34.6 RDW Std Deviation 42.7 RDW Coeff of Ren 12.1 Plt Count 241 MPV 10.1 Immature Gran % (Auto) 0.500 Neut % (Auto) 73.4 H Lymph % (Auto) 18.1 L [place] % (Auto) 7.9 Eos % (Auto) 0.0 Baso % (Auto) 0.1 Absolute Neuts (auto) 7.2 Absolute Lymphs (auto) 1.76 Nucleated RBC % 0 PT INR Fibrinogen Sodium 138 Potassium 3.6 Chloride 102 Carbon Dioxide 28.0 Anion Gap 8 BUN 13 Creatinine 1.14 Estim Creat Clear Calc 73.84 Est GFR (MDRD) Af Amer 89 Est GFR (MDRD) Non-Af 74 BUN/Creatinine Ratio 11.4 Glucose 187 H Lactic Acid Calcium 8.4 L Phosphorus 2.9 Magnesium Total Bilirubin 0.50 AST 39 H ALT 46 Alkaline Phosphatase 55 Lactate Dehydrogenase Total Creatine Kinase C-React Prot Ext Range B-Natriuretic Peptide Total Protein 7.6 Albumin 3.2 Globulin 4.4 H Albumin/Globulin Ratio 0.7 L Procalcitonin 0.12 H Micro: Microbiology 11/08/20 Unknown Respiratory Panel (PCR) - Final Mucosa - Nasopharyngeal 11/08/20 15:20 Legionella Antigen - Final Urine, Clean Catch Streptococcus pneumoniae Antigen (M - Final 11/08/20 10:55 SARS-CoV-2 Antigen (Rapid) - Final Interface Orders SARS-CoV-2 (COVID 19)
[2020-11-09] MEDS: Pantoprazole Sodium 40 MG Tablet PO (15:00)
[2020-11-09 16:15] LABS: Bedside Glucose 264 mg/dL (70-110)
[2020-11-09] MEDS: Insulin Lispro 100 UNIT/ML INSULN.PEN SC ×2 (16:41→22:26)
[2020-11-09 23:05] LABS: Bedside Glucose 271 mg/dL (70-110)
[2020-11-10] VITALS (13 sets, daily range): BP systolic 145–178; BP diastolic 71–91; PULSE 71–93; RESP 18–25; TEMP 36.1–37; O2SAT 92–97
[2020-11-10 05:01] LABS: Absolute Lymphocyte Count 1.44 X10^3/uL (0.83-4.51); Absolute Neutrophil Count 5.4 X10^3/uL (2.0-7.7); Basophil# 0.01 X10^3/uL; Basophil% 0.1 % (0-1); Hematocrit 44.3 % (40-54); Hemoglobin 15.5 g/dL (13.0-16.5); Lymphocyte # 1.44 X10^3/ul (0.83-4.51); Lymphocyte % 19.4 % (19-41); Mean Corpuscular Hgb 33.5 pg (27.0-32.0); Mean Corpuscular Volume 95.7 fL (80-94); Mean Platelet Vol. 10.7 fl (6.2-12.0); Monocyte# 0.55 X10^3/uL; Monocyte% 7.4 % (0-10); NRBC Flagged by Analyzer 0 % (0-5); Neutrophil # 5.36 X10^3/uL (2.7-7.7); Neutrophil % 72.3 % (47-70); POSITIVE MORPHOLOGY YES; Platelet Count 250 K/mm3 (150-450); RBC Distribution Width CV 12.1 % (11.6-14.6); RBC Distribution Width SD 42.8 fl (35.1-43.9); Red Blood Count 4.63 M/mm3 (4.6-6.2); White Blood Count 7.4 K/mm3 (4.4-11.0)
[2020-11-10 05:03] LABS: Differential Indicated SCAN CRITERIA MET
[2020-11-10 05:16] LABS: D-Dimer Quantitative (DVT/PE) 0.33 FEU/ug/m (0.27-0.49)
[2020-11-10 05:22] LABS: ALB/GLOB Ratio 0.7 RATIO (0.9-2.4); AST(SGOT) 22 U/L (15-37); Alanine Aminotransfer ALT/SGPT 35 U/L (16-61); Albumin, Serum 2.8 g/dL (3.2-5.0); Alkaline Phosphatase 52 U/L (45-117); Anion Gap 7 (5-15); Atypical Lymphocyte 1+ %; BUN 18 mg/dL (7-18); BUN/Creat Ratio 21.8 RATIO (10-20); Calcium,Total 8.4 mg/dL (8.5-10.1); Chloride 106 mmol/L (98-107); Creatinine, Serum 0.82 mg/dL (0.70-1.30); EST Glomerular Filtration Rate 107 mL/min (>60); Est Glom Filt Rate - Afr Amer 130 mL/min (>60); Estimated Creatinine Clearance 102.66 ml/min; Ferritin 1766 ng/mL (26-388); Globulin 3.8 g/dL (2.2-4.2); Glucose 237 mg/dL (74-106); Potassium 3.5 mmol/L (3.5-5.1); Protein, Total 6.6 g/dL (6.4-8.2); Sodium Level 140 mmol/L (136-145)
[2020-11-10] MEDS: Insulin Lispro 100 UNIT/ML INSULN.PEN SC ×4 (06:25→21:17)
[2020-11-10] MEDS: 0.9% Saline Lock 10 ML Syringe IV ×2 (06:27→21:22)
[2020-11-10 07:25] LABS: Hemoglobin A1c 6.7 % (3.8-5.6)
[2020-11-10 08:16] LABS: Bedside Glucose 212 mg/dL (70-110)
[2020-11-10] MEDS: Enoxaparin 40 MG/0.4 ML Syringe SC ×2 (08:19→21:20)
[2020-11-10] MEDS: Pantoprazole Sodium 40 MG Tablet PO (08:19)
[2020-11-10] MEDS: dexAMETHasone 4 MG Tablet 6 MG PO (08:20)
[2020-11-10] MEDS: guaiFENesin/D-Methorphan TAB.SR.12H 1 TABLET PO ×2 (08:20→21:21)
--- NOTE | 2020-11-10 11:01 | PN.HOSP_ITS ---
Subjective Subjective No fever or chills. Heart rate and blood pressure controlled. On 4-5 L of oxygen Objective Data Objective Data Vital Signs: Vital Signs Temp Pulse Resp BP Pulse Ox 98.6 F 77 19 H 157/91 H 92 11/10/20 02:33 11/10/20 03:32 11/10/20 02:33 11/10/20 02:33 11/10/20 07:30 Oxygen Flow Rate (L/min) 5 Oxygen Delivery Method Nasal Cannula Weight: 388 lb 0.217 oz Body Mass Index (BMI) 60.9 Intake & Output: Intake and Output for Last 24 Hours 11/08/20 11/09/20 11/10/20 23:59 23:59 23:59 Intake Total 690 / 690 1770 / 2470 1400 / 1400 Output Total 375 / 375 850 / 850 400 / 400 Balance 315 / 315 920 / 1620 1000 / 1000 Lab / Micro Data Result Diagrams: 11/10/20 04:50 11/10/20 04:50 Labs: Laboratory Results - last 24 hr 11/09/20 11/09/20 11/10/20 16:11 22:19 04:50 WBC 7.4 RBC 4.63 Hgb 15.5 Hct 44.3 MCV 95.7 H MCH 33.5 H MCHC 35.0 RDW Std Deviation 42.8 RDW Coeff of Ren 12.1 Plt Count 250 MPV 10.7 Immature Gran % (Auto) 0.800 Neut % (Auto) 72.3 H Lymph % (Auto) 19.4 [place] % (Auto) 7.4 Eos % (Auto) 0.0 Baso % (Auto) 0.1 Absolute Neuts (auto) 5.4 Absolute Lymphs (auto) 1.44 Nucleated RBC % 0 Atypical Lymphocytes 1+ D-Dimer Quant (PE/DVT) Sodium Potassium Chloride Carbon Dioxide Anion Gap BUN Creatinine Estim Creat Clear Calc Est GFR (MDRD) Af Amer Est GFR (MDRD) Non-Af BUN/Creatinine Ratio Glucose Hemoglobin A1c Calcium Ferritin Total Bilirubin AST ALT Alkaline Phosphatase C-React Prot Ext Range Total Protein Albumin Globulin Albumin/Globulin Ratio POC Glucose 264 H 271 H 11/10/20 11/10/20 11/10/20 04:50 04:50 04:50 WBC RBC Hgb Hct MCV MCH MCHC RDW Std Deviation RDW Coeff of Ren Plt Count MPV Immature Gran % (Auto) Neut % (Auto) Lymph % (Auto) [place] % (Auto) Eos % (Auto) Baso % (Auto) Absolute Neuts (auto) Absolute Lymphs (auto) Nucleated RBC % Atypical Lymphocytes D-Dimer Quant (PE/DVT) 0.33 Sodium 140 Potassium 3.5 Chloride 106 Carbon Dioxide 27.0 Anion Gap 7 BUN 18 Creatinine 0.82 Estim Creat Clear Calc 102.66 Est GFR (MDRD) Af Amer 130 Est GFR (MDRD) Non-Af 107 BUN/Creatinine Ratio 21.8 H Glucose 237 H Hemoglobin A1c 6.7 H Calcium 8.4 L Ferritin 1766 H Total Bilirubin 0.50 AST 22 ALT 35 Alkaline Phosphatase 52 C-React Prot Ext Range 21.30 H Total Protein 6.6 Albumin 2.8 L Globulin 3.8 Albumin/Globulin Ratio 0.7 L POC Glucose 11/10/20 06:23 WBC RBC Hgb Hct MCV MCH MCHC RDW Std Deviation RDW Coeff of Ren Plt Count MPV Immature Gran % (Auto) Neut % (Auto) Lymph % (Auto) [place] % (Auto) Eos % (Auto) Baso % (Auto) Absolute Neuts (auto) Absolute Lymphs (auto) Nucleated RBC % Atypical Lymphocytes D-Dimer Quant (PE/DVT) Sodium Potassium Chloride Carbon Dioxide Anion Gap BUN Creatinine Estim Creat Clear Calc Est GFR (MDRD) Af Amer Est GFR (MDRD) Non-Af BUN/Creatinine Ratio Glucose Hemoglobin A1c Calcium Ferritin Total Bilirubin AST ALT Alkaline Phosphatase C-React Prot Ext Range Total Protein Albumin Globulin Albumin/Globulin Ratio POC Glucose 212 H Micro: Microbiology 11/08/20 14:45 Blood Culture (Wb) - Left Hand Blood Culture - Preliminary No growth in 48 hours. 11/08/20 15:00 Blood Culture (Wb) - Anticubital Left Blood Culture - Preliminary No growth in 48 hours. 11/08/20 11:05 Blood Culture (Wb) - Anticubital Left Blood Culture - Preliminary No growth in 48 hours. 11/08/20 10:58 Blood Culture (Wb) - Anticubital Left Blood Culture - Preliminary No growth in 48 hours. 11/08/20 Unknown Mucosa - Nasopharyngeal Respiratory Panel (PCR) - Final 11/08/20 15:20 Urine, Clean Catch Legionella Antigen - Final 11/08/20 15:20 Urine, Clean Catch Streptococcus pneumoniae Antigen (M - Final 11/08/20 10:55 Interface Orders SARS-CoV-2 Antigen (Rapid) - Final SARS-CoV-2 (COVID 19) Physical Exam Narrative Physical exam General: Alert, Oriented x3, Cooperative, morbid obesity BMI 61.1 kg/m? HEENT: Atraumatic, PERRLA, EOMI, Normocephalic Oral: No Gingival or Mucosal Lesions/ Ulcerations Neck: Supple, No JVD, Negative Carotid Bruits Lungs: Air entry improving but still diminished in bilateral lung bases. Hyp oxic. No crepitation/rhonchi Cardiovascular: Regular rate, Regular Rhythm, Normal S1, Normal S2, No murmurs Abdomen: Bowel Sounds Present, Soft, Non Tender, Non-Distended : No renal angle tenderness. No suprapubic tenderness. Extremities: Mild bilateral nonpitting, lymphatic edema, Capillary Refill Less than 3 Seconds Skin: No rashes, No breakdown Musculoskeletal: No Tenderness to Palpation of Joints or Extremities Neurological: Cranial nerves II-XII grossly intact, Deep Tendon Reflexes 2+/4 and Symmetrical, Neuro grossly intact Psych/Mental Status: Normal Affect, Appropriate. Assessment & Plan Assessment/Plan (1) Pneumonia due to 2019 novel coronavirus: (2) Hypoxemia: PLAN: 1. Acute hypoxic respiratory failure due to bilateral COVID-19 pneumonia: Chest x-ray and CTA reviewed. No PE. Multiple areas of patchy airspace groundglass opacities worse in lingular segment and left lower lobe. D-dimer is elevated. AST 58. Started on IV remdesivir and dexamethasone. ID consult appreciated. Lactic acid normal 11/09: Laboratory markers CRP, ferritin, LDH are elevated. BNP normal. Procalci tonin elevated at 0.12. Continue oxygen support. BiPAP at night. Respiratory panel is negative. Urinary antigens are negative. / improvement in breathing and oxygen. O2 4 L. Continue incentive spirometry and Pep. 2. Morbid obesity, BMI 61.1 Kg per meter square: Patient denies history of obstructive sleep apnea: No formal evaluation. Patient hematocrit is elevated probably due to undiagnosed sleep apnea 3. Diabetes mellitus type 2: Accu-Cheks before meals and at bedtime encouragement of sliding scale. Glucose 150. 6/3: Hyperglycemia probably secondary to steroid and diabetes: Insulin dose uptitrated. 4. Hypertension: Blood pressure is controlled. Home medications reviewed. VTE prophylaxis: Moderate to high risk: Lovenox 40 mg subcu twice daily. Full code. Charges/Coding Visit Charges Inpatient E&M: 26160 Subs Hosp L2
[2020-11-10 12:00] LABS: Bedside Glucose 287 mg/dL (70-110)
[2020-11-10 16:21] LABS: Bedside Glucose 308 mg/dL (70-110)
[2020-11-10 21:35] LABS: Bedside Glucose 291 mg/dL (70-110)
[2020-11-10] MEDS: amLODIPine 5 MG Tablet PO (22:46)
[2020-11-11] VITALS (7 sets, daily range): BP systolic 144–176; BP diastolic 67–95; PULSE 66–90; RESP 16–22; TEMP 36.1; O2SAT 87–96
[2020-11-11 04:14] LABS: ALB/GLOB Ratio 0.8 RATIO (0.9-2.4); AST(SGOT) 18 U/L (15-37); Alanine Aminotransfer ALT/SGPT 32 U/L (16-61); Albumin, Serum 2.8 g/dL (3.2-5.0); Alkaline Phosphatase 51 U/L (45-117); Anion Gap 6 (5-15); BUN 19 mg/dL (7-18); BUN/Creat Ratio 23.3 RATIO (10-20); Calcium,Total 8.3 mg/dL (8.5-10.1); Chloride 108 mmol/L (98-107); Creatinine, Serum 0.82 mg/dL (0.70-1.30); EST Glomerular Filtration Rate 108 mL/min (>60); Est Glom Filt Rate - Afr Amer 131 mL/min (>60); Estimated Creatinine Clearance 102.66 ml/min; Globulin 3.7 g/dL (2.2-4.2); Glucose 263 mg/dL (74-106); Potassium 3.7 mmol/L (3.5-5.1); Protein, Total 6.5 g/dL (6.4-8.2); Sodium Level 140 mmol/L (136-145)
[2020-11-11] MEDS: Insulin Lispro 100 UNIT/ML INSULN.PEN SC (08:41)
[2020-11-11 08:51] LABS: Bedside Glucose 228 mg/dL (70-110)
--- NOTE | 2020-11-11 09:42 | PCM.DC ---
Discharge Instructions Diet Discharge Diet: 1800 Calorie Control Diet Activity Discharge Activity: - (Encourage routine regular activity, out of bed during daytime hours, up and moving in your home.) Additional Activity Instructions:: Please maintain continued isolation/quarantine until 20 days post-symptoms. Off quarantine 11/23/20. Dressing / Incision Call your doctor if you observe: Fever of 101 or Higher, Shortness of breath, Dizziness, Chest pain and Calf discomfort Follow Up Care Test Results: Test results from this visit will be discussed in further detail at your follow-up appointment, if applicable. Discharge Plan Admission Admit Date/Time: 11/08/20 12:29 Primary Reason for Your Visit: COVID-19 PNA, Hypoxia Attending Provider: Meg Guillermo Primary Care Provider: Manuel Gee Consulting Providers: Jose Galaviz Instructions Patient Instructions: Coronavirus Disease 2019 (COVID-19): Overview, Coronavirus Disease 2019 (COVID-19): Caring for Yourself or Others, COVID-19: Lying in a Prone Position (Proning), Using Injected Insulin, Using Oxygen Safely, Traveling with Oxygen, Using Oxygen at Home, Your Diabetes Toolkit, ED Using an Injection Pen, Insulin Glargine Solution for injection Additional Instructions / Restrictions: PER INFECTIOUS DISEASE: Continue 20 days of quarantine which will be completed and out of quarantine on 11/23/20. Please set-up early follow-up, virtual acceptable to arrange COVID vaccination once you have completed your quarantine timeline. You may wait up to 3 months but you can get vaccinated prior to this timeline. ADDITIONAL: Please continue oxygen supplementation until appropriately weaned off to room air by your primary care physician. Your insulin has been increased secondary to elevated levels while on steroid and during your acute infection. Please monitor your blood sugars and work with your primary care physician to decrease this regimen once appropriate. Your HgBA1c was 6.7% thus once your blood sugars trend down STOP the scheduled insulin or HOLD if your blood sugars are routinely </= 140. Please utilize a home pulse oximeter (may be purchased at pharmacy/[facility]) and monitor if note worsened shortness of breathe both resting and with exertion. Discharge Orders/Prescriptions Prescriptions: New pantoprazole 40 mg Tablet,Delayed Release (Dr/Ec) 40 mg PO DAILY 30 Days Qty: 30 RF: 0 Lantus Solostar U-100 Insulin 100 unit/mL (3 mL) Insulin Pen 20 unit subcut BID 30 Days Qty: 12 RF: 0 Mucus DM 30-600 mg Tablet Extended Release 12 Hr 1 tab PO BID 10 Days Qty: 20 RF: 0 dexamethasone 4 mg Tablet 6 mg PO DAILY 6 Days Qty: 9 RF: 0 aspirin 81 mg tablet,chewable 81 mg PO DAILY Qty: 14 RF: 0 Continued metformin 500 mg tablet 500 mg PO BID RF: 0 amlodipine 5 mg tablet 5 mg PO DAILY RF: 0 Other Ambulatory Orders: Glucometer (Routine) Location: None Selected Ordered By: Dr. Meg Guillermo Referrals / Follow Up: Manuel Gee MD [Primary Care Provider] - (Follow-up within 3-5 days of discharge.) Disposition Disposition (needs filled in before D/C Order can be placed): Home, self care
--- NOTE | 2020-11-11 10:00 | PCM.DC.SUM ---
Providers Date of Admission: 11/08/20 Primary Care Physician: Dr. Manuel Gee MD Consultations 11/08/20 14:18 Consult: Infectious Disease Routine Consulting Provider: Jose Galaviz Reason for Consult: Covid-19 EMERGENT Consult: No MD Notified: Yes Date Notified:: 11/08/20 Time Notified: 12:59 Method of Notification: face to face Reason For Visit: BILATERAL COVID-19 PNEUMONIA Diagnosis Discharge Diagnosis (1) Pneumonia due to 2019 novel coronavirus: Status: Acute Code(s): U07.1 - COVID-19; J12.82 - Pneumonia due to coronavirus disease 2019 (2) Hypoxemia: Status: Acute Code(s): R09.02 - Hypoxemia Medications at Discharge Home Medications amlodipine 5 mg PO DAILY 11/08/20 metformin 500 mg PO BID 11/08/20 aspirin 81 mg PO DAILY #14 tab 11/11/20 dexamethasone 6 mg PO DAILY 6 Days #9 tab 11/11/20 dextromethorphan-guaifenesin [Mucus DM] 1 tab PO BID 10 Days #20 tab 11/11/20 insulin glargine [Lantus Solostar U-100 Insulin] 20 unit SUBCUT BID 30 Days #12 ml 11/11/20 pantoprazole 40 mg PO DAILY 30 Days #30 tab 11/11/20 Hospital Course Operations None Procedures EKG and - (CTPA performed with BL COVID PNA, no PE.) Summary of Care Provided Minutes Spent on Discharge: 35 Hospital Course: Discharge Diagnoses: 1. Acute Hypoxia secondary to Bilateral Pneumonia secondary to Acute Viral Syndrome, COVID-19 2. Diabetes mellitus type II with Hyperglycemia (Acute illness and steroid associated, HgBA1c 6.7%) 3. Hypertension 4. Morbid Obesity 5. History of former chew tobacco Discharge Summary: The patient is a 45 y/o M w/ PMHx: HTN, Diabetes mellitus type II, Morbid Obesity who presented to the [facility] ED on 11/08/20 w/ history of body aches, fatigue, malaise starting approximately 5 days prior to ED presentation with then onset of cough and mild dyspnea over 3 days prior to ED presentation with significant history of Covid ill family members prompting ED presentation. In the ED work-up included chest x-ray and CTA of the chest which did not demonstrate any pulmonary emboli but was significant for bilateral Covid pneumonia with notable hypoxia upon presentation noted be 87% on room air with increased respiratory rate. Patient was admitted to the Covid unit, maintain oxygen with eventual wean as noted with need for only exertional oxygen 2 L at discharge. Patient was maintained on Decadron with discharged additionally to home to complete 10-day course. Patient also received initial dosing of remdesivir prior to his discharge. Patient was evaluated by infectious disease who recommended 20-day quarantine from initial symptom onset. Patient with notable hyperglycemia eventually started on subcu long-acting insulin as well as insulin sliding scale with hemoglobin A1c noted to be 6.7%, likely hyperglycemic secondary to steroids and acute presentation which was continued upon discharge but strong recommendations and information given to hold once de-escalate it off steroids or if blood sugars dropped with close PCP follow-up. Discharge Time: > 35 Minutes DAY OF DISCHARGE PROGRESS NOTE: Subjective: Patient without acute event overnight per self and nursing report. Patient denies fever, chills, nausea, emesis, abdominal pain, chest pain. Patient notes dyspnea has significantly improved and upon ambulation trial for discharge to home noted to be 90% on room air at rest however with exertion and ambulation patient dropped to 87% but improved to 96% on 2 L nasal cannula which will be set up for discharge to home. Patient agreeable to discharge to home given clinical improvement understanding that he will continue steroids to completion, continue and complete 20-day quarantine in addition to temporary usage of subcu long-acting insulin given significant hyperglycemia in the setting of steroid usage with wean to off once completed and blood sugars improve with orders and instructions also given for hold if blood sugars decrease dramatically. Patient will be discharged with follow-up with primary care physician within 3-5 days even a virtual necessary to review present admission. Objective: T 97, heart rate 85, BP 144/72, respiratory rate 16, 92% on room air. Physical Examination: General: awake, alert, oriented x 3 and cooperative, seated upright in the ICU bed, NAD, notes feeling improved, dyspnea has lessened, eager for discharge. Skin: normal color, normal turgor, no icterus, no cyanosis. HEENT: AT/NC, EOMI, PERRLA, MMM. Lungs: Diffusely diminished, greater bases, improving effort, moderate, no rales, ronchi or wheezing. Heart: Regular rate and rhythm; no gallop, rub audible. Abdomen: soft, morbidly obese, NTTP, ND, distant normal BS. Extremities: no cyanosis, clubbing, or edema. Neurological: patient awake, alert, oriented as noted; cognitive function appears intact upon questioning,; pupils equally reactive to light and accomodation; cranial nerves II-XII grossly normal, moving all 4 extremities, strength improving, mildly to moderately global decrease. Psychiatric: affect appears mildly fatigued otherwise normal, no acute evidence of depressive or anxiety feelings. Assessment and Plan: Please see hospital summary above. ABG / Lab / Microbiology Data Result Diagrams: 11/10/20 04:50 11/11/20 03:30 Laboratory: Laboratory Results - last 24 hr 11/10/20 11/10/20 11/10/20 11:43 16:13 21:16 Sodium Potassium Chloride Carbon Dioxide Anion Gap BUN Creatinine Estim Creat Clear Calc Est GFR (MDRD) Af Amer Est GFR (MDRD) Non-Af BUN/Creatinine Ratio Glucose Calcium Total Bilirubin AST ALT Alkaline Phosphatase Total Protein Albumin Globulin Albumin/Globulin Ratio POC Glucose 287 H 308 H 291 H 11/11/20 11/11/20 03:30 08:40 Sodium 140 Potassium 3.7 Chloride 108 H Carbon Dioxide 26.0 Anion Gap 6 BUN 19 H Creatinine 0.82 Estim Creat Clear Calc 102.66 Est GFR (MDRD) Af Amer 131 Est GFR (MDRD) Non-Af 108 BUN/Creatinine Ratio 23.3 H Glucose 263 H Calcium 8.3 L Total Bilirubin 0.50 AST 18 ALT 32 Alkaline Phosphatase 51 Total Protein 6.5 Albumin 2.8 L Globulin 3.7 Albumin/Globulin Ratio 0.8 L POC Glucose 228 H Microbiology: Microbiology 11/08/20 14:45 Blood Culture - Preliminary Blood Culture (Wb) - Left Hand No growth in 48 hours. 11/08/20 15:00 Blood Culture - Preliminary Blood Culture (Wb) - Anticubital Left No growth in 48 hours. 11/08/20 11:05 Blood Culture - Preliminary Blood Culture (Wb) - Anticubital Left No growth in 48 hours. 11/08/20 10:58 Blood Culture - Preliminary Blood Culture (Wb) - Anticubital Left No growth in 48 hours. Microbiology 11/08/20 14:45 Blood Culture (Wb) - Left Hand Blood Culture - Preliminary No growth in 48 hours. 11/08/20 15:00 Blood Culture (Wb) - Anticubital Left Blood Culture - Preliminary No growth in 48 hours. 11/08/20 11:05 Blood Culture (Wb) - Anticubital Left Blood Culture - Preliminary No growth in 48 hours. 11/08/20 10:58 Blood Culture (Wb) - Anticubital Left Blood Culture - Preliminary No growth in 48 hours. 11/08/20 Unknown Mucosa - Nasopharyngeal Respiratory Panel (PCR) - Final 11/08/20 15:20 Urine, Clean Catch Legionella Antigen - Final 11/08/20 15:20 Urine, Clean Catch Streptococcus pneumoniae Antigen (M - Final 11/08/20 10:55 Interface Orders SARS-CoV-2 Antigen (Rapid) - Final SARS-CoV-2 (COVID 19) D/C Instructions Discharge Diet: 1800 Calorie Control Diet Additional Activity Instructions: Please maintain continued isolation/quarantine until 20 days post-symptoms. Off quarantine 11/23/20. Call your doctor if you observe: Fever of 101 or Higher, Shortness of breath, Dizziness, Chest pain and Calf discomfort Meaningful Use Info Meaningful Use Diagnoses (Choose all that apply): None applicable Discharge Plan Admission Admit Date/Time: 11/08/20 12:29 Primary Reason for Your Visit: COVID-19 PNA, Hypoxia Attending Provider: Meg Guillermo Primary Care Provider: Manuel Gee Consulting Providers: Jose Galaviz Patient Instructions: Coronavirus Disease 2019 (COVID-19): Overview, Coronavirus Disease 2019 (COVID-19): Caring for Yourself or Others, COVID-19: Lying in a Prone Position (Proning), Using Injected Insulin, Using Oxygen Safely, Traveling with Oxygen, Using Oxygen at Home, Your Diabetes Toolkit, ED Using an Injection Pen, Insulin Glargine Solution for injection Additional Instructions / Restrictions: PER INFECTIOUS DISEASE: Continue 20 days of quarantine which will be completed and out of quarantine on 11/23/20. Please set-up early follow-up, virtual acceptable to arrange COVID vaccination once you have completed your quarantine timeline. You may wait up to 3 months but you can get vaccinated prior to this timeline. ADDITIONAL: Please continue oxygen supplementation until appropriately weaned off to room air by your primary care physician. Your insulin has been increased secondary to elevated levels while on steroid and during your acute infection. Please monitor your blood sugars and work with your primary care physician to decrease this regimen once appropriate. Your HgBA1c was 6.7% thus once your blood sugars trend down STOP the scheduled insulin or HOLD if your blood sugars are routinely </= 140. Please utilize a home pulse oximeter (may be purchased at pharmacy/[facility]) and monitor if note worsened shortness of breathe both resting and with exertion. Discharge Orders/Prescriptions Prescriptions: New pantoprazole 40 mg Tablet,Delayed Release (Dr/Ec) 40 mg PO DAILY 30 Days Qty: 30 RF: 0 Lantus Solostar U-100 Insulin 100 unit/mL (3 mL) Insulin Pen 20 unit subcut BID 30 Days Qty: 12 RF: 0 Mucus DM 30-600 mg Tablet Extended Release 12 Hr 1 tab PO BID 10 Days Qty: 20 RF: 0 dexamethasone 4 mg Tablet 6 mg PO DAILY 6 Days Qty: 9 RF: 0 aspirin 81 mg tablet,chewable 81 mg PO DAILY Qty: 14 RF: 0 Continued metformin 500 mg tablet 500 mg PO BID RF: 0 amlodipine 5 mg tablet 5 mg PO DAILY RF: 0 Other Ambulatory Orders: Glucometer (Routine) Location: None Selected Ordered By: Dr. Meg Guillermo Referrals / Follow Up: Manuel Gee MD [Primary Care Provider] - (Follow-up within 3-5 days of discharge.) Disposition Disposition (needs filled in before D/C Order can be placed): Home, self care Charges/Coding Visit Charges Inpatient E&M: 30736 Disch Hosp
--- NOTE | 2020-11-11 11:32 | NURSING ---
Called Court, gave needed information, faxes sent approx [phone] for oxygen orders. Spoke w/ Gita, she said she will be dispatching a vibratory pile driver with information and they will be in contact with us prior to discharge.
--- NOTE | 2020-11-13 15:40 | CASEMGMT ---
Follow up COVID telephone call post hospitalization. SHORTY COWAN attempted to reach pt. Left message with call back information on patient identified voicemail.
== END 2020-11-11 12:36 | disposition home or self-care (01) | DRG 177 ==
LOC: ED 12:13 → ICU 11-09 07:26
PROVIDERS: Admitting Provider Internal Medicine; Emergency Provider Emergency Medicine; PCP Family Medicine; Visit Provider Family Medicine
DX: U07.1 COVID-19 (principal); J12.82 Pneumonia due to coronavirus disease 2019; J96.01 Acute respiratory failure with hypoxia; Z68.44 Body mass index [BMI] 60.0-69.9, adult; E11.65 Type 2 diabetes mellitus with hyperglycemia; R79.89 Other specified abnormal findings of blood chemistry; E66.01 Morbid (severe) obesity due to excess calories; I10 Essential (primary) hypertension; G47.30 Sleep apnea, unspecified; Z87.891 Personal history of nicotine dependence; T38.0X5A Adverse effect of glucocorticoids and synthetic analogues, initial encounter; Y92.9 Unspecified place or not applicable
CPT/HCPCS: 71045; 71275; 80053; 82550; 82728; 82962; 83036; 83605; 83615; 83735; 83880; 84100; 84145; 85025; 85379; 85384; 85610; 86140; 87040; 87426; 87449; 87633; 93005; 94667; 94668; 97802; 99251; 99285; 99406; J7030; J7050; Q9967; A4216; G0463

== ENCOUNTER 2021-10-13 20:56 | Emergency (ER) | payer BC, SELFPAY ==
[2021-10-13 20:58] VITALS: BP 197/101; PULSE 88; RESP 16; TEMP 36.6; O2SAT 98; BMI 65.7
--- NOTE | 2021-10-13 21:09 | EX.ED.UPPERE ---
HPI History of Present Illness Chief Complaint: Upper Extremity Injury Narrative Narrative: 46-year-old male presenting with pain in the left middle finger. 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 He has a punctate wound here. Over the course of the last 24 hours he states he has had some swelling and erythema to the finger diffusely. He has difficulty bending the finger because of edema. There is some redness that spreads up into the MCP and over the dorsum of the left hand. Patient states that sensation is intact. He is not had any bleeding. He does think that there might be a small piece of metal in his hand. He is right-hand dominant. Last tetanus unknown. [facility] Medical History Diabetes Hypertension Home Medications amlodipine 5 mg PO DAILY 11/08/20 [History Last Taken Unknown] metformin 500 mg PO BID 11/08/20 [History Last Taken Unknown] insulin glargine [Lantus Solostar U-100 Insulin] 20 unit SUBCUT BID 30 Days #12 ml 11/11/20 [Rx Last Taken Unknown] ascorbic acid (vitamin C) [Vitamin C] 100 mg PO DAILY 10/13/21 [History Last Taken Unknown] cephalexin 500 mg PO Q6 #40 cap 10/13/21 [Rx Last Taken Unknown] multivitamin [Daily Vitamin] 1 tab PO DAILY 10/13/21 [History Last Taken Unknown] omega-3 fatty acids [Fish Oil] 1,000 mg PO DAILY 10/13/21 [History Last Taken Unknown] vitamin [id number] acid 1 tab PO DAILY 10/13/21 [History Last Taken Unknown] zinc 10 mg PO DAILY 10/13/21 [History Last Taken Unknown] Allergy/AdvReac Type Severity Reaction Status Date / Time No Known Allergies Allergy Verified 10/13/21 20:58 Family History Father CAD (coronary artery disease) Social History Smoking Status: Never smoker ROS ROS ED Constitutional Constitutional ED: Denies chills, fever(s) or sweats Eyes Eyes: Denies blurry vision ENT ENT ED: Denies rhinorrhea or sore throat Cardiovascular Cardiovascular: Denies chest pain or palpitations Respiratory/Chest Respiratory/Chest: Denies cough or dyspnea Gastrointestinal Gastrointestinal: Denies abdominal pain or nausea Genitourinary Genitourinary ED: Denies dysuria or hematuria Musculoskeletal Musculoskeletal: Reports other Details: Left middle finger pain and swelling Integumentary Reports other Details: Erythema overlying the left middle finger and dorsal hand. Neurologic Neurologic: Denies headache(s) Psychiatric Psychiatric: Denies anxiety or depression EXAM Physical Exam Const Vital Signs: 10/13/21 20:58 Temperature 97.8 F Temperature Source Temporal Pulse Rate 88 Respiratory Rate 16 Blood Pressure 197/101 H Blood Pressure Mean 133 Pulse Ox 98 Oxygen Delivery Method Room Air Positive well nourished General Appearance ED: NAD HEENT Reports moist mucous membranes normocephalic and atraumatic Resp normal respiratory effort and clear to auscultation bilaterally Cardio regular rate and regular rhythm Extremity Extremity Narrative: Fairly diffuse swelling of the left middle finger which is mild. There is erythema overlying this area which spreads into the dorsum of the left hand overlying the MCP of the third digit. No crepitance palpated. No pain with extension. The middle finger is not held in flexion. No tenderness over the volar surface. Left hand neurovascular intact brisk cap refill to all 5 fingers. There is a punctate wound to the noted between the third MCP and DIP. This is on the lateral surface. No foreign body is palpated. Neuro oriented x3 Sensorium / Orientation: alert Psych mental status grossly normal Skin Skin Narrative: As described above. MDM MDM MDM Narrative Medical decision making narrative: Patient presenting with swelling of the left finger after puncture wound while welding. There is some erythema and swelling although this is not significantly red, tender. There is swelling but is not severe. I stated the area is not significantly red. This could all be from inflammation. There is been no drainage from the wound site. No lymphangitic spreading. X-ray of the left hand on my interpretation shows no acute fracture. There is also no subcutaneous air. There is mild swelling located in the third digit. Given the patient's x-ray is normal with no foreign bodies I believe I can start him on Keflex safely to cover for infection. Patient given return precautions. Tetanus updated today. Impression: 1. Puncture wound left third digit 2. Cellulitis Discharge Plan Triage Chief Complaint: Upper Extremity Injury Other Complaint: Wound Check ED Provider: Frank Sanchez Dx/Rx/DC Orders Instructions: ED Cellulitis, ED Puncture Wound (General) Prescriptions: New cephalexin 500 mg capsule 500 mg PO Q6 Qty: 40 RF: 0 No Action metformin 500 mg tablet 500 mg PO BID RF: 0 amlodipine 5 mg tablet 5 mg PO DAILY RF: 0 Lantus Solostar U-100 Insulin 100 unit/mL (3 mL) Insulin Pen 20 unit subcut BID 30 Days Qty: 12 RF: 0 multivitamin [Daily Vitamin] Tablet 1 tab PO DAILY RF: 0 Vitamin C 100 mg Tablet 100 mg PO DAILY RF: 0 Fish Oil Capsule 1,000 mg PO DAILY RF: 0 vitamin A71-kaqjf acid 0.5-1 mg Tablet 1 tab PO DAILY RF: 0 zinc 10 mg Tablet 10 mg PO DAILY RF: 0 Primary Care Provider: Manuel Gee Referrals: Manuel Gee MD [Primary Care Provider] - Disposition Disposition: Home, Self Care
--- NOTE | 2021-10-13 21:15 | RAD_ITS ---
STUDY: LEFT HAND X-RAY SERIES--3 VIEWS OF 2114 HOURS ON 10/13/2021 REASON FOR EXAM: Male, 46 years old. hand pain TECHNIQUE: 3 view(s) of the hand. COMPARISON: None. FINDINGS: No fractures or dislocations. No arthritic or degenerative changes. Normal joint spaces. Patient is capable of hyperextension of the distal interphalangeal joint of the thumb. Normal radiocarpal articulation. Normal distal radioulnar joint. Normal visualized carpal bones. Normal carpal articulations Normal carpometacarpal articulation of the thumb. Normal second through fifth carpometacarpal joints. Normal metacarpi. Normal metacarpophalangeal joint of the thumb. Normal interphalangeal joint of the thumb. Normal proximal and distal phalanges of the thumb. Normal metacarpophalangeal joints of the second through fifth fingers. Normal proximal and distal interphalangeal joints of the second through fifth fingers. Normal phalanges of the second through fifth fingers. The soft tissue structures are unremarkable. There are no aplastic or inflammatory changes. RAD/Hand Min 3 Views IMPRESSION: 1. No fractures or dislocations 2. No arthritic or degenerative changes. 3. Patient is capable of hyperextension of the distal phalangeal segment of the thumb. 4. No neoplastic or inflammatory changes. Electronically Signed: Sundeep Francois MD at 22:05 EDT ,
[2021-10-13] MEDS: Diphth,Pertuss(Acell),Tet Vac 0.5 ML Vial IM (21:22)
[2021-10-13] MEDS: Cephalexin 250 MG Capsule 500 MG PO (22:12)
[2021-10-13 22:15] VITALS: BP 154/87; PULSE 84; RESP 18; O2SAT 97
== END 2021-10-13 22:16 | disposition home or self-care (01) ==
PROVIDERS: Emergency Provider Student in an Organized Health Care Education/Training Program; PCP Family Medicine; Visit Provider Student in an Organized Health Care Education/Training Program
DX: L03.012 Cellulitis of left finger (principal); E11.9 Type 2 diabetes mellitus without complications; Z79.4 Long term (current) use of insulin; S61.233A Puncture wound without foreign body of left middle finger without damage to nail, initial encounter; I10 Essential (primary) hypertension; W26.8XXA Contact with other sharp object(s), not elsewhere classified, initial encounter; Z79.899 Other long term (current) drug therapy; Z23 Encounter for immunization
CPT/HCPCS: 73130; 90715; 99283

== ENCOUNTER 2023-04-24 13:55 | Emergency (ER) | payer BC, SELFPAY ==
[2023-04-24] VITALS (7 sets, daily range): BP systolic 178–201; BP diastolic 89–117; PULSE 98–122; RESP 16–27; TEMP 36.2–36.7; O2SAT 94–99; BMI 57.1
--- NOTE | 2023-04-24 14:34 | NURSING ---
pt with hx umbilical hernia. able to normally reduce and feels better but unable to today.
--- NOTE | 2023-04-24 15:02 | CT_ITS ---
EXAM: CT ABDOMEN AND PELVIS WITH INTRAVENOUS CONTRAST CLINICAL INDICATION: incarcerated ventral hernia TECHNIQUE: Helically acquired images were obtained of the abdomen and pelvis with intravenous contrast. This CT exam was performed using one or more of the following dose reduction techniques: automated exposure control, adjustment of the mA and/or kV according to patient size, and/or use of iterative reconstruction technique. CONTRAST: IV 100mL Isovue-370 RADIATION DOSE: CTDIvol = 17.07 mGy, DLP = 1343.02 mGy-cm COMPARISON: No relevant prior studies available. FINDINGS: Exam limited by patient size. This causes decreased resolution and artifact. Also portions of the abdominal wall are excluded from the [id number]. LOWER THORAX: Unremarkable. Lung bases are clear. No cardiomegaly. No significant pericardial effusion. ABDOMEN: LIVER: Fatty infiltration and hepatomegaly. Homogeneous. No focal mass. GALLBLADDER AND BILE DUCTS: Unremarkable. No calcified gallstones. No gallbladder distention or wall edema. No intra- or extrahepatic biliary ductal dilation. PANCREAS: Unremarkable. No focal cystic or solid mass. SPLEEN: Unremarkable. Normal size without focal cystic or solid mass. ADRENALS: Unremarkable. No nodules. KIDNEYS AND URETERS: Unremarkable. Normal renal size and position. No hydronephrosis. STOMACH AND BOWEL: Evaluation of the GI tract is limited by absence of oral contrast. There is a moderate umbilical hernia containing distended loops of bowel and there are a few distended loops of small bowel in the abdomen. Findings are consistent with at least partial small bowel obstruction related to the hernia. Cannot exclude stomach wall thickening. Cannot exclude segmental thickening of the dominguez of the small or large bowel. Cannot exclude enteritis or colitis. Appendix within normal limits. PELVIS: APPENDIX: No evidence of acute appendicitis. BLADDER: Unremarkable. REPRODUCTIVE: Unremarkable as visualized. No mass. ABDOMEN and PELVIS: INTRAPERITONEAL SPACE: Unremarkable. No ascites or other fluid collection. No free air. BONES/JOINTS: Degenerative changes. Bilateral pars defects of L5 with significant anterolisthesis and severe L5-S1 degenerative disease. No suspicious lytic or blastic abnormality. SOFT TISSUES: Moderately large umbilical hernia containing small bowel loops and causing at least partial obstruction. VASCULATURE: Unremarkable. Abdominal aorta is non-dilated. LYMPH NODES: Unremarkable. No enlarged lymph nodes. CT/Abdomen/Pelvis W IV Cont ONLY IMPRESSION: 1. Limited as above. 2. Moderate umbilical hernia containing bowel loops and causing at least partial small bowel obstruction. Electronically Signed: Jimmie Love MD at 16:51 EST ,
--- NOTE | 2023-04-24 15:04 | EX.ED.DYSGE1 ---
HPI History of Present Illness Chief Complaint: Abd Pain Informant: patient and spouse/S.O. Narrative Narrative: 47-year-old male with a history of diabetes and hypertension presenting to the emergency room with abdominal pain. Patient states that 1 year ago he began to have a ventral hernia which he states was always reducible with rubbing. This morning at approximately 0700 hrs (appox 8 hrs ago). he was at his shop lifting heavy metal when he felt the hernia come out. He was unable to get it reduced. 1 hour later he began vomiting and has been unable to maintain p.o. since. Last attempted drinking was approximately 3 hours ago. He has not visited with a surgeon before. No prior abdominal surgeries. [facility] Medical History Diabetes Hypertension Home Medications amlodipine 5 mg tablet 5 mg PO DAILY BLOOD PRESSURE 11/08/20 [History Last Taken 04/24/23] dulaglutide 3 mg/0.5 mL subcutaneous pen injector (Trulicity) 3 mg subcut WELCH DIABETES 04/24/23 [History Last Taken 04/20/23] lisinopril 20 mg tablet 20 mg PO DAILY BLOOD PRESSURE 04/24/23 [History Last Taken 04/24/23] oxycodone-acetaminophen 5 mg-325 mg tablet 1 tab PO Q6H PRN PRN Pain 3 days #12 TABLETS 04/24/23 [Rx Last Taken Unknown] Allergy/AdvReac Type Severity Reaction Status Date / Time No Known Allergies Allergy Verified 04/24/23 13:55 Family History Father CAD (coronary artery disease) Surgical History no surgical history no surgical history Social History Smoking Status: Never smoker ROS ROS ED Constitutional Constitutional ED: Denies chills, fever(s) or weight loss Eyes Eyes: Denies change in vision or diplopia ENT ENT ED: Denies ear pain, rhinorrhea or sore throat Cardiovascular Cardiovascular: Denies chest pain, orthopnea, palpitations or racing heartbeat Respiratory/Chest Respiratory/Chest: Denies cough, dyspnea or orthopnea Gastrointestinal Gastrointestinal: Reports abdominal pain, nausea and vomiting; Denies diarrhea Genitourinary Genitourinary ED: Denies dysuria, hematuria or urinary frequency Musculoskeletal Musculoskeletal: Denies arthralgias or myalgias Integumentary Denies abscess or rash Neurologic Neurologic: Denies headache(s) or weakness Psychiatric Psychiatric: Denies anxiety, depression, suicidal ideation or suicidal thoughts Endocrine Endocrinology: Denies polydipsia, polyphagia or polyuria Allergic/Immunologic Allergic/Immunologic ED: Denies mouth swelling, tongue swelling or urticaria EXAM Physical Exam Const Vital Signs: 04/24/23 13:55 04/24/23 13:55 04/24/23 16:19 Temperature 97.1 F L 98.0 F Temperature Source Temporal Oral Pulse Rate 122 H Pulse Rate [1 (Initial Baseline)] 120 H Pulse Rate [2] 110 H Respiratory Rate 18 Respiratory Rate [1 (Initial Baseline)] 20 H Respiratory Rate [2] 24 H Blood Pressure 189/117 H Blood Pressure [1 (Initial Baseline)] 200/108 H Blood Pressure [2] 193/105 H Blood Pressure Mean 141 Pulse Ox 98 Oxygen Delivery Method Room Air Oxygen Delivery Method [1 (Initial Baseline)] Nasal Cannula Oxygen Delivery Method [2] Nasal Cannula Oxygen Flow Rate (L/min) Oxygen Flow Rate (L/min) [1 (Initial Baseline)] 2 Oxygen Flow Rate (L/min) [2] 6 04/24/23 16:15 04/24/23 16:29 04/24/23 16:34 Temperature 98 F Temperature Source Pulse Rate 103 H Pulse Rate [1 (Initial Baseline)] Pulse Rate [2] Respiratory Rate 27 H Respiratory Rate [1 (Initial Baseline)] Respiratory Rate [2] Blood Pressure 201/101 H Blood Pressure [1 (Initial Baseline)] Blood Pressure [2] Blood Pressure Mean Pulse Ox 97 Oxygen Delivery Method Nasal Cannula Nasal Cannula Nasal Cannula Oxygen Delivery Method [1 (Initial Baseline)] Oxygen Delivery Method [2] Oxygen Flow Rate (L/min) 2 5 4 Oxygen Flow Rate (L/min) [1 (Initial Baseline)] Oxygen Flow Rate (L/min) [2] 04/24/23 16:39 04/24/23 17:30 Temperature Temperature Source Pulse Rate 98 Pulse Rate [1 (Initial Baseline)] Pulse Rate [2] Respiratory Rate 16 Respiratory Rate [1 (Initial Baseline)] Respiratory Rate [2] Blood Pressure 178/89 H Blood Pressure [1 (Initial Baseline)] Blood Pressure [2] Blood Pressure Mean 118 Pulse Ox 97 Oxygen Delivery Method Nasal Cannula Room Air Oxygen Delivery Method [1 (Initial Baseline)] Oxygen Delivery Method [2] Oxygen Flow Rate (L/min) 2 Oxygen Flow Rate (L/min) [1 (Initial Baseline)] Oxygen Flow Rate (L/min) [2] Positive well nourished and well developed General Appearance ED: well developed HEENT Reports normocephalic, head/scalp atraumatic and moist mucous membranes Eyes PERRL and EOMs intact bilaterally Neck no lymphadenopathy, supple and no JVD Resp normal respiratory effort and clear to auscultation bilaterally Cardio regular rate, regular rhythm and no murmurs GI GI Narrative: There is a large ventral hernia very tender and firm located just cephalad to the umbilicus. Palpation: soft, tender periumbilical and guarding Back/Spine no CVA tenderness and normal ROM Extremity normal to inspection General Extremety ED: Negative for edema General Extremity: Negative for edema Neuro oriented x3 and CN's II-XII intact bilaterally Sensorium / Orientation: alert Motor Exam: strength 5/5 throughout Psych mental status grossly normal Mood & Affect: Negative for depressed or tearful Skin no rashes or lesions noted and no wounds MDM MDM MDM Narrative Medical decision making narrative: After examining the patient I did speak with . The patient received Dilaudid Zofran and Ativan. I attempted manual reduction using direct pressure for approximately 5 minutes without successful reduction (1534). T obtained which is concerning for early obstruction with incarcerated hernia. Dr. Romero to the emergency department evaluate the patient. Options were discussed with the patient. He provided informed written consent for procedural sedation using etomidate. Patient was prepped for procedural sedation. Because of the body habitus of the patient and facial features including. I asked respiratory therapy to be in the room for assistance if need be. He was administered a total of 20 mg of etomidate. Once adequate sedation was achieved Dr. Romero is able to reduce the hernia. Patient had a brief desaturation to 89%. He was not apneic or have any hypotensive episodes. He was allowed to recover. Patient will be observed. The patient continues to be resting more comfortably. He has been able to eat and drink. I will write for pain medication. In speaking with surgery they recommend that he follow-up with bariatric surgery in [place]. I will provide a referral. In the interim the patient should return if worsening or concerns. Work restrictions will be given Lab Data Attestation: I reviewed the patient's lab results. Labs: Laboratory Results - last 24 hr 04/24/23 15:10 WBC 12.4 H RBC 4.97 Hgb 16.3 Hct 48.2 MCV 97.0 H MCH 32.8 H MCHC 33.8 RDW Std Deviation 44.2 H RDW Coeff of Ren 12.4 Plt Count 223 MPV 11.0 Immature Gran % (Auto) 0.700 Neut % (Auto) 90.5 H Lymph % (Auto) 5.5 L [place] % (Auto) 2.9 Eos % (Auto) 0.1 Baso % (Auto) 0.3 Absolute Neuts (auto) 11.2 H Absolute Lymphs (auto) 0.68 L Nucleated RBC % 0 Sodium 137 Potassium 4.0 Chloride 105 Carbon Dioxide 26.0 Anion Gap 6 BUN 20 H Creatinine 0.90 Estim Creat Clear Calc 94.87 Est GFR (MDRD) Af Amer 116 Est GFR (MDRD) Non-Af 96 BUN/Creatinine Ratio 22.2 H Glucose 189 H Lactic Acid 1.8 Calcium 9.6 Total Bilirubin 0.50 Direct Bilirubin 0.16 AST 14 L ALT 24 Alkaline Phosphatase 84 Total Protein 7.8 Albumin 4.1 Globulin 3.7 Lipase 31 Radiography Diagnostic Testing: Clinical Impression(s) from Imaging Studies Abdomen/Pelvis CT 04/24/23 15:02 IMPRESSION: 1. Limited as above. 2. Moderate umbilical hernia containing bowel loops and causing at least partial small bowel obstruction. Electronically Signed: Jimmie Love MD at 16:51 EST , Management Discussion w/another healthcare provider: [employer] (Surgery (Dr. Reyes)) Procedures Procedural Sedation 1 (Initial Baseline): Consent Signed: Yes Any Problems With Anesthesia: No You/Your family experience fever (hyperthermia) w/anesthesia: No Sedation medication: Etomidate Dose: 20 Route: IV Total Moderate Sedation Units: 5 Maliampati Score: Class I ASA Classification: I Discharge Plan Triage Chief Complaint: Abd Pain ED Provider: Sharath Barrett Dx/Rx/DC Orders Clinical Impression: Diabetes, Hypertension, Incarcerated umbilical hernia Instructions: What Is a Hernia?, ED Hernia (Adult) Prescriptions: New oxycodone-acetaminophen [oxycodone-acetaminophen] 5-325 mg tablet 1 tab PO Q6H PRN PRN (Reason: Pain) 3 Days Qty: 12 0RF No Action amlodipine 5 mg tablet 5 mg PO DAILY Trulicity 3 mg/0.5 mL pen injector 3 mg SUBCUT WELCH lisinopril 20 mg tablet 20 mg PO DAILY Primary Care Provider: Izaiah Gudino Referrals: Ayan Wise MD [Non-Staff] - As soon as possible Manuel Gee MD [Non-Staff] - (general surgery ) Mariama Reyes MD [Med Staff - Active Staff] - (for surgery) Disposition Disposition: Home, Self Care Discharge Date/Time: 04/24/23 18:11
[2023-04-24] MEDS: Ondansetron 4 MG/2 ML Vial IV (15:14)
[2023-04-24] MEDS: LORazepam 2 MG/ML Syringe 1 MG IV (15:15)
[2023-04-24] MEDS: HYDROmorphone 1 MG/ML Syringe IV (15:15)
[2023-04-24] MEDS: 0.9% Normal Saline (1000mL) 1,000 ML 1000 ML IV (15:18)
[2023-04-24 15:28] LABS: Absolute Lymphocyte Count 0.68 X10^3/uL (0.83-4.51); Absolute Neutrophil Count 11.2 X10^3/uL (2.0-7.7); Basophil# 0.04 X10^3/uL; Basophil% 0.3 % (0-1); Eosinophil# 0.01 X10^3/uL; Eosinophils% 0.1 % (0-5); Hematocrit 48.2 % (40-54); Hemoglobin 16.3 g/dL (13.0-16.5); Lymphocyte # 0.68 X10^3/ul (0.83-4.51); Lymphocyte % 5.5 % (19-41); Mean Corp Hgb Conc 33.8 g/dL (32-36); Mean Corpuscular Hgb 32.8 pg (27.0-32.0); Monocyte# 0.36 X10^3/uL; Monocyte% 2.9 % (0-10); NRBC Flagged by Analyzer 0 % (0-5); Neutrophil # 11.21 X10^3/uL (2.7-7.7); Neutrophil % 90.5 % (47-70); Platelet Count 223 K/mm3 (150-450); RBC Distribution Width CV 12.4 % (11.6-14.6); RBC Distribution Width SD 44.2 fl (35.1-43.9); Red Blood Count 4.97 M/mm3 (4.6-6.2); White Blood Count 12.4 K/mm3 (4.4-11.0)
[2023-04-24 15:45] LABS: AST(SGOT) 14 U/L (15-37); Alanine Aminotransfer ALT/SGPT 24 U/L (16-61); Albumin, Serum 4.1 g/dL (3.2-5.0); Alkaline Phosphatase 84 U/L (45-117); Anion Gap 6 (5-15); BUN 20 mg/dL (7-18); BUN/Creat Ratio 22.2 RATIO (10-20); Bilirubin, Direct 0.16 mg/dL (0.00-0.30); Calcium,Total 9.6 mg/dL (8.5-10.1); Chloride 105 mmol/L (98-107); EST Glomerular Filtration Rate 96 mL/min (>60); Est Glom Filt Rate - Afr Amer 116 mL/min (>60); Estimated Creatinine Clearance 94.87 ml/min; Globulin 3.7 g/dL (2.2-4.2); Glucose 189 mg/dL (74-106); Lipase 31 U/L (13-75); Protein, Total 7.8 g/dL (6.4-8.2); Sodium Level 137 mmol/L (136-145)
[2023-04-24 15:53] LABS: Lactic Acid 1.8 mmol/L (0.4-1.9)
--- NOTE | 2023-04-24 16:12 | PCM.HP.STD ---
HPI - General General Date of Service: 04/24/23 Chief Complaint: Incarcerated umbilical hernia HPI Narrative HALLIE MUHAMMAD, is a 47 M who presents to the ER due to incarcerated umbilical hernia. Patient states he had previously been able to reduce however was lifting something heavy today and unable to reduce since 7 AM this morning. Patient last ate about 5 AM. Patient did have nausea and vomiting after this came into the ER. CT abdomen pelvis was done showed incarcerated hernia with bowel. Initially this was not able to be manually reduced with just Dilaudid by the ER doctor. [facility] Medical History Diabetes Hypertension Home Medications amlodipine 5 mg tablet 5 mg PO DAILY BLOOD PRESSURE 11/08/20 [History Last Taken 04/24/23] dulaglutide 3 mg/0.5 mL subcutaneous pen injector (Trulicity) 3 mg subcut WELCH DIABETES 04/24/23 [History Last Taken 04/20/23] lisinopril 20 mg tablet 20 mg PO DAILY BLOOD PRESSURE 04/24/23 [History Last Taken 04/24/23] Allergy/AdvReac Type Severity Reaction Status Date / Time No Known Allergies Allergy Verified 04/24/23 13:55 Family History Father CAD (coronary artery disease) Surgical History no surgical history Social History Smoking Status: Never smoker ROS Constitutional Constitutional: Reports anorexia Eyes Eyes: Denies blurry vision ENT HEENT: Denies dysphagia Cardiovascular Cardiovascular: Denies chest pain Respiratory/Chest Respiratory/Chest: Denies cough Gastrointestinal Gastrointestinal: Reports abdominal pain, nausea and vomiting; Denies melena Genitourinary Genitourinary: Denies dysuria Musculoskeletal Musculoskeletal: Denies joint swelling Integumentary Integumentary: Denies rash Neurologic Neurologic: Denies dizziness Psychiatric Psychiatric: Denies depression Hematologic/Lymphatic Hematologic/Lymphatic: Denies easy bruising Vital Signs Vital Signs Vital Signs: 04/24/23 13:55 04/24/23 13:55 Temperature 97.1 F L 98.0 F Temperature Source Temporal Oral Pulse Rate 122 H Respiratory Rate 18 Blood Pressure 189/117 H Blood Pressure Mean 141 Pulse Ox 98 Oxygen Delivery Method Room Air Weight Weight: 364 lb 11.2 oz Body Mass Index (BMI) 57.1 Physical Exam Const alert, oriented x3 and no apparent distress HEENT normocephalic and head/scalp atraumatic Resp normal respiratory effort Cardio regular rate GI soft to palpation; Negative for non-distended Palpation: tender other (Umbilical hernia, incarcerated, no change in overlying skin); Negative for guarding Extremity no clubbing, cyanosis or edema Neuro CN's II-XII intact bilaterally Psych mental status grossly normal Results Lab / Micro Data 04/24/23 15:10 04/24/23 15:10 Labs: Laboratory Results - last 24 hr 04/24/23 15:10: WBC 12.4 H, RBC 4.97, Hgb 16.3, Hct 48.2, MCV 97.0 H, MCH 32.8 H, MCHC 33.8, RDW Std Deviation 44.2 H, RDW Coeff of Ren 12.4, Plt Count 223, MPV 11.0, Immature Gran % (Auto) 0.700, Neut % (Auto) 90.5 H, Lymph % (Auto) 5.5 L, [place] % (Auto) 2.9, Eos % (Auto) 0.1, Baso % (Auto) 0.3, Absolute Neuts (auto) 11.2 H, Absolute Lymphs (auto) 0.68 L, Nucleated RBC % 0, Sodium 137, Potassium 4.0, Chloride 105, Carbon Dioxide 26.0, Anion Gap 6, BUN 20 H, Creatinine 0.90, Estim Creat Clear Calc 94.87, Est GFR (MDRD) Af Amer 116, Est GFR (MDRD) Non-Af 96, BUN/Creatinine Ratio 22.2 H, Glucose 189 H, Lactic Acid 1.8, Calcium 9.6, Total Bilirubin 0.50, Direct Bilirubin 0.16, AST 14 L, ALT 24, Alkaline Phosphatase 84, Total Protein 7.8, Albumin 4.1, Globulin 3.7, Lipase 31 Assessment & Plan Assessment/Plan (1) Incarcerated umbilical hernia: PLAN: Plan Did discuss with the patient and his that if I was unable to get this reduced under sedation per ER doctor would need to go in for exploratory laparotomy, possible bowel resection including to but not limited to risk of bleeding, infection, need for further surgery, recurrence of hernia and anesthesia. Patient and his had no further questions this time. They were agreeable to proceed with sedation to try to reduce the hernia. Sedation was given by the ER physician Dr. Garciaswith manual pressure able to get the hernia reduced with some effort. Able to definitively feel the edges of the hernia. Patient was recovered in ER. Patient is able to tolerate diet will be able to DC home. Did also discuss with the and patient after sedation. Discussed that patient does have about a 4 x 4 centimeter hernia and due to his body habitus he would require a larger piece of mesh or could also benefit from bariatric surgery. We will have the ER referred to a bariatric surgeon/minimally invasive to further discuss to see if patient would be interested. Mariama Reyes M.D. Pager: [phone] [facility] [address] [place] [address] [place] [address] Office: [phone]
[2023-04-24] MEDS: Etomidate 20 MG/10 ML Vial IV (16:19)
[2023-04-24] MEDS: 0.9% Normal Saline (1000mL) 1,000 ML 125 ML IV (16:33)
== END 2023-04-24 18:11 | disposition home or self-care (01) ==
PROVIDERS: Emergency Provider Emergency Medicine; PCP Student in an Organized Health Care Education/Training Program; Visit Provider Emergency Medicine
DX: K42.0 Umbilical hernia with obstruction, without gangrene (principal); E11.9 Type 2 diabetes mellitus without complications; I10 Essential (primary) hypertension; Z79.899 Other long term (current) drug therapy; Z79.85 Long-term (current) use of injectable non-insulin antidiabetic drugs
CPT/HCPCS: 74177; 80048; 80076; 83605; 83690; 85025; 96361; 96374; 96375; 99284; J7030; Q9967; A4216; J2405